=== PATIENT | female | born 1975 | race Caucasian/White ===

== ENCOUNTER 2017-02-19 02:20 | Emergency (ER) | payer MEDICAID ==
[~2017-02-19] VITALS: Ht 157.5 cm; Wt 59.0 kg
[~2017-02-19 02:20] MED LIST: HYDR10SO PO; KETO10 PO; LISI2.5T55 PO; PARO20 PO; ROBA500T PO; TAB-TAB PO
[2017-02-19 02:22] VITALS: BP 136/85; PULSE 92; RESP 16; TEMP 97.7; O2SAT 96
--- NOTE | 2017-02-19 02:36 | PD ---
HPI Chief Complaint: Skin Problem Time Seen by Provider: 02:35 Travel History International Travel<30 days: No Contact w/Intl Traveler<30days: No Traveled to known affect area: No History of Present Illness HPI 42-year-old female who is right handed, presents to emergency department for evaluation of a abscess on the lateral aspect of her right second digit. Patient states that she cut it with a piece of thread last week. Over the course of the week it became reddened and now is swollen and fluctuant. She is concerned because she states she has diabetes. She has had no fever or chills. No limitations range of motion of the digit. States that when it is palpated it is very painful, 10 out of 10 pain. States that it throbs at times. No other symptoms to report. She is not up-to-date on her tetanus. PFSH Past Medical History Arthritis: Yes (RA) Diabetes: Yes Patient Takes Glucophage: No Tetanus Vaccination: > 5 Years Influenza Vaccination: No ?: Not Past Surgical History Joint Replacement: Yes (TOTAL RT HIP) Social History Alcohol Use: Yes (OCC) Tobacco Use: Yes Substance Use: No Allergies-Medications (Allergen,Severity, Reaction): Coded Allergies: penicillin G (Unverified Allergy, Unknown, 02/19/17) Reported Meds & Prescriptions Reported Meds & Active Scripts Active Ibuprofen 600 Mg Tab 600 Mg PO Q8HR PRN Keflex (Cephalexin) 500 Mg Cap 500 Mg PO Q6H 5 Days Bactrim DS (Sulfamethoxazole-Trimethoprim) 800-160 Mg Tab 1 Tab PO BID Toradol (Ketorolac Tromethamine) 10 Mg Tab 10 Mg PO TID PRN Reported Multivitamin (Multivitamins) 1 Tab Tab 1 Tab PO DAILY Paxil 20 Mg Tab (Paroxetine Hcl) 20 Mg Tab 20 Mg PO DAILY Lisinopril 2.5 mg (Lisinopril) Unknown Strength Tab Unknown Dose PO Hydrocodone/Acetaminophen (Miscellaneous Medication) 10 Mg/325 Mg Tab 1 Tab PO DIRECTED PRN Robaxin (Methocarbamol) Unknown Strength Tab Unknown Dose PO Q8 Review of Systems Except as stated in HPI: all other systems reviewed are Neg Physical Exam Narrative GENERAL: Well-nourished, well-developed female patient no acute distress SKIN: Focused skin assessment warm/dry. 1 cm in diameter area of fluctuance on the lateral aspect of the right second digit over the the medial phalanx. Patient has full flexion extension of the digit. Area is tender to palpate. HEAD: Normocephalic. EYES: No scleral icterus. No injection or drainage. NECK: Supple, trachea midline. No JVD or lymphadenopathy. CARDIOVASCULAR: Regular rate and rhythm without murmurs, gallops, or rubs. RESPIRATORY: Breath sounds equal bilaterally. No accessory muscle use. MUSCULOSKELETAL: No cyanosis, or edema. BACK: Nontender without obvious deformity. No CVA tenderness. Data Data Last Documented VS Vital Signs Date Time Temp Pulse Resp B/P (MAP) Pulse Ox O2 Delivery O2 Flow Rate FiO2 02/19/17 02:50 02/19/17 02:22 97.7 92 16 96 Room Air Orders Orders Tetanus/Diphtheria Tox Adult (Tetanus/Di (02/19/17 02:45) Sulfamet-Trimeth Ds 800-160 Mg (Bactrim (02/19/17 02:45) Cephalexin (Keflex) (02/19/17 02:45) Wound Culture And Gram Stain (02/19/17 02:35) Ibuprofen (Motrin) (02/19/17 02:45) MDM Medical Decision Making Medical Screen Exam Complete: Yes Emergency Medical Condition: Yes Medical Record Reviewed: Yes Differential Diagnosis Abscess versus cellulitis versus erysipelas versus insect bite Narrative Course 42-year-old female presents for his apartment for evaluation. Patient has an abscess on the right second digit. I&D is complete, cultures obtained. Patient is treated for pain and given first dose of antibiotic. She is updated on her tetanus. She is counseled on care and agrees to return immediately with any acute worsening of symptoms. Procedures Procedure Narrative INCISION AND DRAINAGE OF ABSCESS: The area was prepped and was sterilely draped. A palatal chloride was used to anesthetize the area. The area was properly anesthetized. A number 11 scalpel was used to make a 1-cm incision across the area of the abscess. Cultures were obtained. The abscess was drained an irrigated with normal saline. Sterile dressing was applied. Patient tolerated this well. Diagnosis Primary Impression: Abscess of finger of right hand Referrals: Primary Care Physician Patient Instructions: Abscess Incision and Drainage (DC), General Instructions Additional Instructions: Keep the area clean and dry Follow-up with her primary care provider Elevate to reduce pain and swelling Return immediately to the emergency department with any acute worsening of symptoms. Med/Other Pt SpecificInfo: Prescription(s) given Scripts Ibuprofen (Ibuprofen) 600 Mg Tab 600 MG PO Q8HR Y for PAIN, #30 TAB 0 Refills Prov: Jocelyne Fleming 02/19/17 Cephalexin (Keflex) 500 Mg Cap 500 MG PO Q6H for Infection for 5 Days, #20 CAP 0 Refills Prov: Jocelyne Fleming 02/19/17 Sulfamethoxazole-Trimethoprim (Bactrim DS) 800-160 Mg Tab 1 TAB PO BID for Infection, #20 TAB 0 Refills Prov: Jocelyne Fleming 02/19/17 Disposition: 01 DISCHARGE HOME Condition: Stable Jocelyne Fleming Feb 19, 2017 02:36
[2017-02-19] MEDS ORDERED: IBUPROFEN 600 MG TAB PO ONE (02:45)
[2017-02-19] MEDS ORDERED: TETANUS/DIPHTHERIA TOXOID ADULT 0.5 ML VIAL IM ONE (02:45)
[2017-02-19] MEDS ORDERED: SULFAMETHOXAZOLE-TRIMETHOPRIM DS 800-160 MG TAB PO ONE (02:45)
[2017-02-19] MEDS ORDERED: CEPHALEXIN MONOHYDRATE 500 MG CAP PO ONE (02:45)
[2017-02-19] MEDS ORDERED: BACT800T5 PO (02:51)
[2017-02-19] MEDS ORDERED: CEPH-460 PO (02:51)
[2017-02-19] MEDS ORDERED: IBUP-232 PO (02:51)
== END 2017-02-19 03:00 | disposition home or self-care (01) ==
LOC: NEPD 02:20
DX: L02.511 Cutaneous abscess of right hand (principal); B95.61 Methicillin susceptible Staphylococcus aureus infection as the cause of diseases classified elsewhere; B95.1 Streptococcus, group B, as the cause of diseases classified elsewhere; E11.9 Type 2 diabetes mellitus without complications; Z72.0 Tobacco use; Z88.0 Allergy status to penicillin; Z23 Encounter for immunization
CPT/HCPCS: 26010; 86403; 87070; 87186; 90471; 90714

== ENCOUNTER 2017-02-24 23:03 | Inpatient (IN) | payer MEDICAID ==
[~2017-02-24] VITALS: Ht 162.6 cm; Wt 54.2 kg
[~2017-02-24 23:03] MED LIST changes: +BACT800T5 PO; +CEPH-460 PO; +IBUP-232 PO
[2017-02-24 23:05] VITALS: BP 112/59; PULSE 73; RESP 35; RESP 40; TEMP 98; O2SAT 98
[2017-02-24] MEDS ORDERED: SODIUM CHLOR 0.9% 1000 ML INJ 1,000 ML IV ONE ×3 (23:08→23:30)
[2017-02-24] MEDS ORDERED: SODIUM CHLOR 0.9% 250 ML INJ 250 ML IV ONE (23:15)
[2017-02-24] MEDS ORDERED: MORPHINE SULFATE 4 MG/ML INJ IV PUSH ONE (23:15)
[2017-02-24] MEDS ORDERED: SODIUM CHLORIDE 0.9% FLUSH 10 ML FLUSH IVF PRN ×2 (23:15)
[2017-02-24] MEDS ORDERED: ONDANSETRON HCL 4 MG/2 ML VIAL IV PUSH ONE (23:15)
[2017-02-24] MEDS ORDERED: DEXT 5%-NACL 0.9% 1000 ML INJ 1,000 ML IV SCH (23:18)
[2017-02-24 23:19] LABS: BLOOD GAS BASE EXCESS -29.6 mmol/L (-2-2); BLOOD GAS CARBOXYHEMOGLOBIN 0.9 % (0-4); BLOOD GAS HCO3 1 mmol/L (22-26); BLOOD GAS METHEMOGLOBIN 0.9 % (0-2); BLOOD GAS O2 HGB SATURATION 96 % (90-100); BLOOD GAS OXYGEN CONTENT 21.2 Vol % (12.0-20.0); BLOOD GAS PCO2 8 mmHg (38-42); BLOOD GAS PO2 149 mmHG (61-120); BLOOD GAS TOTAL HGB 15.6 G/DL (12.0-16.0); TEMP CORR TO 98.6
[2017-02-24 23:20] LABS: CRITICAL VALUE YES; DRAW SITE RT RADIAL; LITER FLOW 3 L/M; NUMBER OF ARTERIAL PUNCTURES 1; OXYGEN DEVICE NASAL CANNULA; STAT YES; ULNAR PULSE PRESENT
[2017-02-24 23:28] VITALS: BP 113/63; PULSE 68; RESP 20; O2SAT 99
[2017-02-24] MEDS ORDERED: CEFEPIME INJ 2,000 MG in SODIUM CHLORIDE 0.9% INJ 100 ML IV ONE (23:30)
[2017-02-24] MEDS ORDERED: VANCOMYCIN INJ 1,000 MG in SODIUM CHLOR 0.9% 250 ML INJ 250 ML IV ONE (23:30)
[2017-02-24] MEDS ORDERED: INSULIN REGULAR (IV INFUSION) 100 UNITS in SODIUM CHLORIDE 0.9% INJ 99 ML IV SCH (23:30)
[2017-02-24] MEDS ORDERED: POTASSIUM CHLOR 20 MEQ PREMIX 100 ML IV PRN ×6 (23:30)
[2017-02-24] MEDS ORDERED: INSULIN HUMAN REGULAR 1,000 UNITS/10 ML VIAL IV PUSH ONE (23:30)
[2017-02-24] MEDS ORDERED: SODIUM BICARBONATE 8.4% INJ 50 MEQ/50 ML SYR IV PUSH ONE (23:30)
[2017-02-24] MEDS ORDERED: SODIUM BICARBONATE 8.4% SOLN 50 MEQ/50 ML VIAL IV PRN ×2 (23:30)
[2017-02-24] MEDS ORDERED: POTASSIUM CHLOR 40 MEQ PREMIX 100 ML IV PRN ×2 (23:30)
[2017-02-24] MEDS ORDERED: SODIUM PHOSPHATE INJ 15 MMOL in SODIUM CHLORIDE 0.9% INJ 100 ML IV PRN (23:30)
--- NOTE | 2017-02-24 23:41 | RADRPT ---
EXAM DATE/TIME: 02/24/2017 23:23 [facility] COMPARISON: No previous studies available for comparison. INDICATIONS : Altered mental status. RADIATION DOSE: 26.11 CTDIvol (mGy) MEDICAL HISTORY : Rheumatoid arthritis. Diabetes mellitus type 2. SURGICAL HISTORY : None. ENCOUNTER: Initial ACUITY: 1 day PAIN SCALE: Non-responsive LOCATION: cranial TECHNIQUE: Multiple contiguous axial images were obtained of the head. Using automated exposure control and adj ustment of the mA and/or kV according to patient size, radiation dose was kept as low as reasonably a chievable to obtain optimal diagnostic quality images. DICOM format image data is available electro nically for review and comparison. FINDINGS: CEREBRUM: The ventricles are normal for age. No evidence of midline shift, mass lesion, hemorrhage or acute in farction. No extra-axial fluid collections are seen. POSTERIOR FOSSA: The cerebellum and brainstem are intact. The 4th ventricle is midline. The cerebellopontine angle i s unremarkable. EXTRACRANIAL: The visualized portion of the orbits is intact. SKULL: The calvaria is intact. No evidence of skull fracture. CONCLUSION: Negative noncontrast CT brain. Jomar Romero MD on February 24, 2017 at 23:38 Board Certified Radiologist. This report was verified electronically.
[2017-02-24] MEDS ORDERED: IOHEXOL 350 MG/ML 10 ML VIAL (for RAD DIAG) IVCONTRAST ONE (23:42)
--- NOTE | 2017-02-24 23:42 | PD ---
HPI Chief Complaint: Respiratory Distress Time Seen by Provider: 23:08 Travel History International Travel<30 days: No Contact w/Intl Traveler<30days: No Traveled to known affect area: No History of Present Illness HPI 42-year-old female presents to the emergency department by EMS transport from home for evaluation of severe shortness of breath and mid scapular and low back pain. Patient has been ill for 2 days. Patient has history of hypertension and per wrap yarn sorter report opiate abuse/IVDA of Dilaudid and heroin. Patient is also diabetic and has not been taking her medications; paramedics report blood sugar was high. According to paramedics prior to arrival to the emergency department patient was found to be in marked distress complaining of worsening shortness of breath administered IV fluids and EKG showed no acute injury pattern change. Patient into much distress to provide any other information other than continues to yell that "[she] needs help because [she is] dying". PFSH Past Medical History Narrative Medical Diabetes polysubstance abuse rheumatoid arthritis; medical record nursing note reviewed Arthritis: Yes (RA) Diabetes: Yes ?: Unknown Past Surgical History Joint Replacement: Yes (TOTAL RT HIP) Social History Alcohol Use: Yes (OCC) Tobacco Use: Yes Substance Use: No Allergies-Medications (Allergen,Severity, Reaction): Coded Allergies: penicillin G (Unverified Allergy, Unknown, 02/24/17) Reported Meds & Prescriptions Reported Meds & Active Scripts Active Reported Novolog Mix 70-30 Inj (Insulin Aspart Prota 70%/Aspart 30%) 1,000 Unit/10 Ml Vial Unknown Dose SQ Review of Systems Except as stated in HPI: all other systems reviewed are Neg Cardiovascular: Positive: Chest Pain or Discomfort Respiratory: Positive: Shortness of Breath Musculoskeletal: Positive: Pain (upper or mid back pain and lower back pain) Physical Exam Narrative GENERAL: Thin disheveled ill appearing female in acute distress acute respiratory distress SKIN: Warm and dry. HEAD: Normocephalic. EYES: No scleral icterus. No injection or drainage. NECK: Supple, trachea midline. No JVD or lymphadenopathy. CARDIOVASCULAR: Increased Regular rate and rhythm without murmurs, gallops, or rubs. RESPIRATORY: Breath sounds equal bilaterally. No accessory muscle use. GASTROINTESTINAL: Abdomen soft, non-tender, nondistended. MUSCULOSKELETAL: No cyanosis, or edema. BACK: Nontender without obvious deformity. No CVA tenderness. Data Data Last Documented VS Vital Signs Date Time Temp Pulse Resp B/P (MAP) Pulse Ox O2 Delivery O2 Flow Rate FiO2 02/24/17 23:28 68 20 113/63 (80) 99 Nasal Cannula 3.00 02/24/17 23:05 98.0 Orders Orders Electrocardiogram (02/24/17 23:08) Basic Metabolic Panel (Bmp) (02/24/17 23:08) Ckmb (Isoenzyme) Profile (02/24/17 23:08) Complete Blood Count With Diff (02/24/17 23:08) Magnesium (Mg) (02/24/17 23:08) Prothrombin Time / Inr (Pt) (02/24/17:08) Act Partial Throm Time (Ptt) (02/24/17 23:08) Troponin I (02/24/17 23:08) Chest, Single Ap (02/24/17 23:08) Ecg Monitoring (02/24/17 23:08) Bilateral Bp Monitoring (02/24/17 23:08) Iv Access Insert/Monitor (02/24/17 23:08) Oximetry (02/24/17 23:08) Oxygen Administration (02/24/17 23:08) Sodium Chloride 0.9% Flush (Ns Flush) (02/24/17 23:15) Cta Thor Abd Aorta W Iv C W3d (02/24/17 23:08) I-Stat Profile (02/24/17 23:08) I-Stat Creatinine (02/24/17 23:08) Calcium (02/24/17 23:08) B-Type Natriuretic Peptide (02/24/17 23:08) Sodium Chlor 0.9% 1000 Ml Inj (Ns 1000 M (02/24/17 23:08) Sodium Chloride 0.9% Flush (Ns Flush) (02/24/17 23:15) Arterial Blood Gas (Abg) (02/24/17 ) Ondansetron Inj (Zofran Inj) (02/24/17 23:15) Morphine Inj (Morphine Inj) (02/24/17 23:15) Type And Screen (02/24/17 23:11) Red Blood Cells (Rbc) (02/24/17 23:11) Blood Product Administration (02/24/17 23:11) Sodium Chlor 0.9% 250 Ml Inj (Ns 250 Ml (02/24/17 23:15) Sodium Chlor 0.9% 1000 Ml Inj (Ns 1000 M (02/24/17 23:15) Sodium Chlor 0.9% 1000 Ml Inj (Ns 1000 M (02/24/17 23:30) Learning And Development Intern / Telemetry STEPHEN.Q8H (02/24/17 23:18) ^ Insert Iv (02/24/17 23:18) Diet Npo (02/25/17 Breakfast) Sodium Chlor 0.9% 1000 Ml Inj (Ns 1000 M (02/24/17 23:18) Dext 5%-Nacl 0.9% 1000 Ml Inj (D5w-Ns 10 (02/24/17 23:18) Insulin Human Regular Inj (Novolin R Inj (02/24/17 23:30) Insulin Regular (Iv Infusion) (Novolin R (02/24/17 23:30) Potassium Chlor 40 Meq Premix (Kcl 40 Me (02/24/17 23:30) Potassium Chlor 40 Meq Premix (Kcl 40 Me (02/24/17 23:30) Potassium Chlor 20 Meq Premix (Kcl 20 Me (02/24/17 23:30) Potassium Chlor 20 Meq Premix (Kcl 20 Me (02/24/17 23:30) Potassium Chlor 20 Meq Premix (Kcl 20 Me (02/24/17 23:30) Potassium Chlor 20 Meq Premix (Kcl 20 Me (02/24/17 23:30) Potassium Chlor 20 Meq Premix (Kcl 20 Me (02/24/17 23:30) Potassium Chlor 20 Meq Premix (Kcl 20 Me (02/24/17 23:30) Sodium Bicarbonate 8.4% Inj (Sodium Bica (02/24/17 23:30) Sodium Bicarbonate 8.4% Inj (Sodium Bica (02/24/17 23:30) Sodium Phosphate Inj (Sodium Phosphate I (02/24/17 23:30) Hemoglobin (Hgb) A1c (02/24/17 23:18) Urinalysis - C+S If Indicated (02/24/17 23:18) Basic Metabolic Panel (Bmp) (02/25/17 04:18) Basic Metabolic Panel (Bmp) (02/25/17 10:18) Magnesium (Mg) (02/25/17 04:18) Magnesium (Mg) (02/25/17 10:18) Phosphorus (Po4) (02/25/17 04:18) Phosphorus (Po4) (02/25/17 10:18) Beta Hydroxybutyrate (Acetone) (02/25/17 10:18) Sodium Bicarbonate 8.4% Inj (Sodium Bica (02/24/17 23:30) Ct Brain W/O Iv Contrast(Rout) (02/24/17 ) Vancomycin Inj (Vancomycin Inj) (02/24/17 23:30) Cefepime Inj (Maxipime Inj) (02/24/17 23:30) Blood Culture (02/24/17 23:24) Lactic Acid Sepsis Protocol (02/24/17 23:24) Ammonia (02/24/17 23:24) Iohexol 350 Inj (Omnipaque 350 Inj) (02/24/17 23:42) Admit Order (Ed Use Only) (02/24/17 ) ^ Saline Lock (02/24/17 23:58) Resp Oxygen Gordon C Titrat 1-4 L (02/24/17 ) Notify Dr: Other (02/24/17 23:58) Sodium Chloride 0.9% Flush (Ns Flush) (02/25/17 09:00) Sodium Chloride 0.9% Flush (Ns Flush) (02/25/17 00:00) CKMB (02/24/17 23:15) CKMB% (02/24/17 23:15) Labs Laboratory Tests Test 02/24/17 23:00 02/24/17 23:15 02/24/17 23:30 Blood Gas Puncture Site RT RADIAL Blood Gas Patient Temperature 98.6 Blood Gas HCO3 1 mmol/L Blood Gas Base Excess -29.6 mmol/L Blood Gas Oxygen Saturation 96 % Arterial Blood pH 6.86 Arterial Blood Partial Pressure CO2 8 mmHg Arterial Blood Partial Pressure O2 149 mmHG Arterial Blood Oxygen Content 21.2 Vol % Arterial Blood Carboxyhemoglobin 0.9 % Arterial Blood Methemoglobin 0.9 % Blood Gas Hemoglobin 15.6 G/DL Oxygen Delivery Device NASAL CANNULA Blood Gas Liter Flow 3 L/M White Blood Count 29.6 TH/MM3 Red Blood Count 5.32 MIL/MM3 Hemoglobin 15.4 GM/DL Bedside Hemoglobin 16.0 G/DL Hematocrit 47.1 % Bedside Hematocrit 47.0 % Mean Corpuscular Volume 88.6 FL Mean Corpuscular Hemoglobin 28.9 PG Mean Corpuscular Hemoglobin Concent 32.6 % Red Cell Distribution Width 13.0 % Platelet Count 602 TH/MM3 Mean Platelet Volume 7.6 FL Neutrophils (%) (Auto) 80.6 % Lymphocytes (%) (Auto) 8.9 % Monocytes (%) (Auto) 9.9 % Eosinophils (%) (Auto) 0.1 % Basophils (%) (Auto) 0.5 % Neutrophils # (Auto) 23.9 TH/MM3 Lymphocytes # (Auto) 2.6 TH/MM3 Monocytes # (Auto) 2.9 TH/MM3 Eosinophils # (Auto) 0.0 TH/MM3 Basophils # (Auto) 0.1 TH/MM3 CBC Comment AUTO DIFF Differential Total Cells Counted 100 Neutrophils % (Manual) 81 % Lymphocytes % 9 % Monocytes % 9 % Basophils % 1 % Neutrophils # (Manual) 24.0 TH/MM3 Differential Comment FINAL DIFF MANUAL Platelet Estimate HIGH Platelet Morphology Comment NORMAL Red Cell Morphology Comment NORMAL Prothrombin Time 11.6 SEC Prothromb Time International Ratio 1.0 RATIO Activated Partial Thromboplast Time 44.7 SEC Bedside Sodium 112 MMOL/L Blood Urea Nitrogen 44 MG/DL Creatinine 1.56 MG/DL Random Glucose 760 MG/DL Calcium Level 9.6 MG/DL Magnesium Level 2.7 MG/DL Sodium Level 112 MEQ/L Potassium Level 5.1 MEQ/L Chloride Level 79 MEQ/L Carbon Dioxide Level LESS THAN 5.0 MEQ/L Bedside Potassium 5.3 MMOL/L Bedside Chloride 90 MMOL/L Anion Gap 28 MEQ/L Bedside Blood Urea Nitrogen 41 MG/DL Bedside Creatinine 0.9 MG/DL Estimat Glomerular Filtration Rate 37 ML/MIN Bedside Glucose GREATER THAN 700 MG/DL Total Bilirubin 0.4 MG/DL Direct Bilirubin 0.1 MG/DL Indirect Bilirubin 0.3 MG/DL Aspartate Amino Transf (AST/SGOT) 19 U/L Alanine Aminotransferase (ALT/SGPT) 24 U/L Alkaline Phosphatase 119 U/L Total Creatine Kinase 395 U/L Creatine Kinase MB 21.5 NG/ML Creatine Kinase MB % 5.4 % Troponin I 0.02 NG/ML B-Type Natriuretic Peptide 156 PG/ML Total Protein 6.8 GM/DL Albumin 3.2 GM/DL Lactic Acid Level 3.3 mmol/L Ammonia 152 MCMOL/L MDM Medical Decision Making Medical Screen Exam Complete: Yes Emergency Medical Condition: Yes Medical Record Reviewed: Yes Interpretation(s) ABG on 3 L/m nasal cannula pH 6.86 PCO2 8.3 PO2 149 bicarbonate 1.4 base excess -30 hemoglobin 15.6 sat 96% CK 395; CK-MB 5.4% EKG sinus rhythm rate [address] elevation or injury pattern identified marked artifact is present Differential Diagnosis Altered mental status, acute coronary syndrome, MD, aortic dissection, PE, sepsis, septic emboli, epidural abscess, DKA Narrative Course Patient placed on services rep IV access obtained from EMS additional IV access obtained to the emergency department patient given 1 L normal saline IV type and screen ordered with 2 units of packed cells on hold i-STAT obtained and patient sent emergently for CT brain noncontrast and CT A of the thoracic and abdominal aorta patient also administered Zofran 4 mg IV along with morphine sulfate 4 mg IV patient's blood gas obtained which shows marked metabolic acidosis with a pH of 6.86 and a bicarbonate of 1.4, 2 Amps of sodium bicarbonate ordered iv now and random glucose was greater than 700 DKA protocol initiated Call placed to underwear hemmer case discussed with Dr. Hancock and accepted for ICU admission Dr. Hancock at patient's bedside for admission Critical Care Narrative Aggregate critical care time was 35 minutes. Time to perform other separately billable procedures was not included in the critical care time. My time did not include minutes spent treating any other patients simultaneously or on activities that did not directly contribute to the patient's treatment. The services I provided to this patient were to treat and/or prevent clinically significant deterioration that could result in: Metabolic acidosis, arrhythmia, respiratory arrest, septic shock, I provided critical care services requiring my management, as noted below: Chart data review, documentation time, medication orders and management, vital sign assessments/reviewing monitor data, ordering and reviewing lab tests, ordering and interpreting/reviewing x-rays and diagnostic studies, care of the patient and discussion of the patient with the admitting physicians. Sepsis Criteria SIRS Criteria (2 or more): WBC > 13501, < 4000 or > 10% bands Physician Communication Physician Communication discussed with and admitted by Dr Hancock Diagnosis Primary Impression: DKA (diabetic ketoacidoses) Additional Impression: Substance abuse Admitting Information Admitting Physician Requests: Admit Yeni Morris MD Feb 24, 2017 23:42
[2017-02-24 23:43] LABS: AUTOMATED NEUTROPHIL # 23.9 TH/MM3 (1.8-7.7); BASOPHIL # 0.1 TH/MM3 (0-0.2); BASOPHIL % 0.5 % (0.0-2.0); EOSINOPHIL % 0.1 % (0.0-4.0); HEMATOCRIT 47.1 % (35.0-46.0); LYMPH % 8.9 % (9.0-44.0); LYMPHOCYTE # 2.6 TH/MM3 (1.0-4.8); MEAN CELL VOLUME 88.6 FL (80.0-100.0); MEAN CORPUSCULAR HEMOGLOBIN 28.9 PG (27.0-34.0); MEAN CORPUSCULAR HGB CONC 32.6 % (32.0-36.0); MONO % 9.9 % (0.0-8.0); NEUT % 80.6 % (16.0-70.0); PLATELET COUNT 602 TH/MM3 (150-450); RED BLOOD COUNT 5.32 MIL/MM3 (4.00-5.30); WHITE BLOOD COUNT 29.6 TH/MM3 (4.0-11.0)
[2017-02-24 23:44] LABS: HEMO FLAGS AUTO DIFF
[2017-02-24 23:47] LABS: I-STAT POTASSIUM 5.3 MMOL/L (3.5-4.9)
[2017-02-24 23:50] LABS: I-STAT SODIUM 112 MMOL/L (138-146)
[2017-02-24 23:59] LABS: APTT (PATIENT) 44.7 SEC (24.3-30.1); PROTHROMBIN TIME - PATIENT 11.6 SEC (9.8-11.6)
[2017-02-25] VITALS (10 sets, daily range): BP systolic 110–124; BP diastolic 59–80; PULSE 71–97; RESP 16–30; TEMP 98.1; O2SAT 99–100
[2017-02-25] MEDS ORDERED: MAGNESIUM OXIDE 400 MG TAB PO PRN
[2017-02-25] MEDS ORDERED: POTASSIUM PHOSPHATE MONOBASIC 500 MG TAB PO/TUBE PRN
[2017-02-25] MEDS ORDERED: POTASSIUM CHLOR 40 MEQ PREMIX 100 ML IV PRN ×2
[2017-02-25] MEDS ORDERED: RESP: ALBUTEROL 2.5 MG/IPRATROPIUM 0.5 MG NEB (PRN) INH
[2017-02-25] MEDS ORDERED: POTASSIUM PHOSPHATE MONOBASIC 500 MG TAB PO PRN
[2017-02-25] MEDS ORDERED: ONDANSETRON HCL 4 MG/2 ML VIAL IV PUSH PRN
[2017-02-25] MEDS ORDERED: MAGNESIUM SULFATE INJ 4 GM in SODIUM CHLORIDE 0.9% INJ 92 ML IV PRN ×2
[2017-02-25] MEDS ORDERED: ENOXAPARIN SODIUM 40 MG/0.4 ML SYRINGE SQ SCH
[2017-02-25] MEDS ORDERED: POTASSIUM PHOSPHATE INJ 30 MMOL in SODIUM CHLOR 0.9% 250 ML INJ 250 ML IV PRN ×2
[2017-02-25] MEDS ORDERED: MAGNESIUM SULFATE INJ 2 GM in SODIUM CHLORIDE 0.9% INJ 96 ML IV PRN ×2
[2017-02-25] MEDS ORDERED: SODIUM CHLORIDE 0.9% FLUSH 10 ML FLUSH IVF PRN
[2017-02-25] MEDS ORDERED: CHLORHEXIDINE GLUCONATE 2 % 1 PACK (2 CLOTHS) TOP PRN
[2017-02-25] MEDS ORDERED: MISCELLANEOUS NURSING INFORMATION XX SCH
[2017-02-25] MEDS ORDERED: SODIUM PHOSPHATE INJ 30 MMOL in SODIUM CHLOR 0.9% 250 ML INJ 240 ML IV PRN ×2
[2017-02-25] MEDS ORDERED: POTASSIUM CHLOR 20 MEQ PREMIX 100 ML IV PRN ×2
--- NOTE | 2017-02-25 00:04 | RADRPT ---
EXAM DATE/TIME: 02/24/2017 23:42 [facility] COMPARISON: No previous studies available for comparison. INDICATIONS : Chest pain x 4 days. MEDICAL HISTORY : Diabetes mellitus type II. SURGICAL HISTORY : None. ENCOUNTER: Initial ACUITY: 4 - 6 days PAIN SCORE: Non-responsive. LOCATION: Bilateral chest FINDINGS: Frontal view of the chest demonstrates the lungs to be symmetrically aerated. Some minimal patchy in filtrates present in the left medial lower lung. No focal areas of consolidation. The heart is norm al in size. The costophrenic angles are well delineated. CONCLUSION: Minimal patchy infiltrates in the left lower lung. Jomar Romero MD on February 25, 2017 at 0:01 Board Certified Radiologist. This report was verified electronically.
[2017-02-25] MEDS ORDERED: NOVOLOGMXP SQ (00:12)
--- NOTE | 2017-02-25 00:12 | RADRPT ---
EXAM DATE/TIME: 02/24/2017 23:31 [facility] COMPARISON: No previous studies available for comparison. INDICATIONS : Short of breath, chest pain. IV CONTRAST: 100 cc Omnipaque 350 (iohexol) IV RADIATION DOSE: 4.52 CTDIvol (mGy) MEDICAL HISTORY : Rheumatoid arthritis. Diabetes mellitus type 2. SURGICAL HISTORY : None. ENCOUNTER: Initial ACUITY: 1 day PAIN SCALE: 5/10 LOCATION: chest TECHNIQUE: Volumetric scanning was performed using a multi-row detector CT scanner. The data was post processed with a variety of visualization algorithms including full volume maximum intensity projection, multi -planar sliding thin slab reformation, curved planar reformation, and surface rendering techniques. Using automated exposure control and adjustment of the mA and/or kV according to patient size, radiat ion dose was kept as low as reasonably achievable to obtain optimal diagnostic quality images. DICOM format image data is available electronically for review and comparison. FINDINGS: LUNGS: Normal patchy non-consolidative infiltrates in the medial left lower lung paraspinal location. No ev idence of pleural effusion. MEDIASTINUM: No abnormally enlarged lymph nodes by CT criteria. No axillary or hilar abnormalities are identified. There is concentric wall thickening of the distal thoracic esophagus. ABDOMEN: Distention of the stomach with prominent amount of fluid within the lumen. The liver and spleen are free of focal defects. The gallbladder and pancreas demonstrate no abnormality. The adrenal glands ar e normal. The kidneys demonstrate no evidence of solid renal mass or hydronephrosis. No free fluid or abdominal masses are identified. No para-aortic adenopathy is seen. PELVIS: No evidence of free fluid or pelvic mass. No abnormally enlarged inguinal or retroperitoneal lymph no lucero are present. The bladder is distended. THORACIC AORTA: The thoracic aortic root is normal with normal branching of the great vessels. There is no evidence of aneurysm or dissection. ABDOMINAL AORTA: The aorta is normal in caliber without aneurysm or dissection. The renal arteries are patent bilater ally. The proximal celiac and superior mesenteric arteries are patent and normal in diameter. PELVIC VESSELS: The internal iliac and external iliac vessels are patent without aneurysm or stenosis. CONCLUSION: 1. Normal CTA of the thoracic and abdominal aorta. No evidence of aneurysm or dissection. 2. Concentric thickening of the thoracic esophageal wall. Fluid distended stomach. Distended urinary bladder. Jomar Romero MD on February 25, 2017 at 0:02 Board Certified Radiologist. This report was verified electronically.
[2017-02-25 00:21] LABS: ANION GAP 28 MEQ/L (5-15); BICARBONATE LESS THAN 5.0 MEQ/L (21.0-32.0); BLOOD UREA NITROGEN 44 MG/DL (7-18); CHLORIDE 79 MEQ/L (98-107); CREATINE KINASE 395 U/L (26-192); GLOMERULAR FILTRATION RATE 37 ML/MIN (>89); MAGNESIUM 2.7 MG/DL (1.5-2.5); POTASSIUM 5.1 MEQ/L (3.5-5.1)
[2017-02-25 00:24] LABS: SODIUM (NA) 112 MEQ/L (136-145)
[2017-02-25 00:26] LABS: BASOPHILS 1 % (0-2); PLATELET ESTIMATE SMEAR HIGH (NORMAL); PLATELET MORPHOLOGY NORMAL (NORMAL); POLYS (SEG NEUTROPHILS) 81 % (16-70); SCAN/DIFF FINAL DIFF MANUAL; WBC DIFF SAMPLE 100
[2017-02-25 00:40] LABS: CKMB 21.5 NG/ML (0.5-3.6)
[2017-02-25] MEDS: SODIUM CHLOR 0.9% 1000 ML INJ 1,000 ML IV SCH ×4 (00:58→11:18)
[2017-02-25 01:43] LABS: LACTIC ACID GHOST NOT REPORTABLE
[2017-02-25 01:44] LABS: BACTERIA, URINE OCC /hpf; BLOOD, URINE MOD (NEG); GLUCOSE,URINE 1000 mg/dL (NEG); KETONE, URINE 150 mg/dL (NEG); MUCUS URINE FEW /lpf (OCC); NITRITE,URINE NEG (NEG); SQUAMOUS EPITHELIAL CELL URINE 7 /hpf (0-5); URINE COLOR LIGHT-YELLOW (YELLW/STRAW)
[2017-02-25 01:46] LABS: COMMENT (UR) CATH-CULTURE IND; CULTURE IF INDICATED CATH CULTURE IND
[2017-02-25] MEDS ORDERED: Vancomycin Consult Pharmacy 1 EA OTHER SCH (02:00)
--- NOTE | 2017-02-25 02:07 | HHI.HP ---
[facility] Service Critical Care Medicine Primary Care Physician Cory Hunter MD Admission Diagnosis DKA Diagnosis: Chief Complaint: shortness of breath Travel History International Travel<30 Days: No Contact w/Intl Traveler <30 Da: No Traveled to Known Affected Are: No History of Present Illness This is a 42yF with history of IVDA, mostly heroin and dilaudid, and type 1 DM who presents with worsening shortness of breath x 2 days. She states she ran out of her 70/30 insulin over the last 3 days. She also endorses fever/chills. She is quite altered and unable to answer additional questions. she is quite tachypneic and states she is short of breath. denies chest pain. denies n/v/c/d or abdominal pain. She did endorse back pain to the ED physician. In the ER, she was found to have a serum glucose of 700 with an ab.86/8/149/-29.6/1. She is in severe DKA. She was given multiple amps of bicarb and started on insulin drip. Review of Systems ROS Limitations: Clinical Condition, Altered Mental Status Constitutional: COMPLAINS OF: Fatigue, Fever, Chills Respiratory: DENIES: Cough, Wheezing, Hemoptysis, Sputum production, Shortness of breath Cardiovascular: DENIES: Chest pain, Palpitations, Syncope Gastrointestinal: DENIES: Abdominal pain, Black stools, Bloody stools, Constipation, Diarrhea, Nausea, Vomiting Musculoskeletal: COMPLAINS OF: Back pain Neurologic: DENIES: Headache Past Family Social History Allergies: Coded Allergies: penicillin G (Unverified Allergy, Unknown, 02/24/17) Past Medical History Rheumatoid Arthritis Type 1 diabetes Past Surgical History right total hip arthroplasty. Reported Medications Novolog Mix 70-30 Inj (Insulin Aspart Prota 70%/Aspart 30%) 1,000 Unit/10 Ml Vial Unknown Dose SQ Active Ordered Medications See MAR Family History unknown and unobtainable secondary to the clinical condition of the patient. Social History + occasional etoh use, +tob use, + IVDA. Physical Exam Vital Signs Vital Signs Date Time Temp Pulse Resp B/P (MAP) Pulse Ox O2 Delivery O2 Flow Rate FiO2 02/25/17 01:27 02/25/17 01:05 71 20 117/68 (84) 99 Nasal Cannula 3.00 02/25/17 00:28 99 Nasal Cannula 3.00 02/25/17 00:05 78 30 110/59 (76) 100 Nasal Cannula 3.00 02/24/17 23:28 68 20 113/63 (80) 99 Nasal Cannula 3.00 02/24/17 23:05 98.0 73 35 112/59 (76) 98 02/24/17 23:05 99 Nasal Cannula 3.00 02/24/17 23:05 40 98 Nasal Cannula 3.00 Physical Exam GENERAL: Middle-aged female but appears much older than stated age, lying in bed , in severe distress, tachypneic HEENT: Normocephalic. Atraumatic. Pupils equal, round, reactive, conjugate. Mucous membranes are dry NECK: Trachea is midline. There is no JVD. CHEST: Very tachypneic, equal chest rise, clear to auscultation CARDIOVASCULAR: Tachycardic rate, regular rhythm. Sinus by telemetry ABDOMEN: Soft, nontender, nondistended. No guarding. MUSCULOSKELETAL: Pulses 2+. No peripheral edema. NEUROLOGICAL: RASS -1. CAM -. Somnolent but arousable. Follows commands Laboratory Laboratory Tests Test 02/24/17 23:00 02/24/17 23:15 02/24/17 23:30 02/25/17 01:10 Blood Gas Puncture Site RT RADIAL Blood Gas Patient Temperature 98.6 Blood Gas HCO3 1 Blood Gas Base Excess -29.6 Blood Gas Oxygen Saturation 96 Arterial Blood pH 6.86 Arterial Blood Partial Pressure CO2 8 Arterial Blood Partial Pressure O2 149 Arterial Blood Oxygen Content 21.2 Arterial Blood Carboxyhemoglobin 0.9 Arterial Blood Methemoglobin 0.9 Blood Gas Hemoglobin 15.6 Oxygen Delivery Device NASAL CANNULA Blood Gas Liter Flow 3 White Blood Count 29.6 Red Blood Count 5.32 Hemoglobin 15.4 Bedside Hemoglobin 16.0 Hematocrit 47.1 Bedside Hematocrit 47.0 Mean Corpuscular Volume 88.6 Mean Corpuscular Hemoglobin 28.9 Mean Corpuscular Hemoglobin Concent 32.6 Red Cell Distribution Width 13.0 Platelet Count 602 Mean Platelet Volume 7.6 Neutrophils (%) (Auto) 80.6 Lymphocytes (%) (Auto) 8.9 Monocytes (%) (Auto) 9.9 Eosinophils (%) (Auto) 0.1 Basophils (%) (Auto) 0.5 Neutrophils # (Auto) 23.9 Lymphocytes # (Auto) 2.6 Monocytes # (Auto) 2.9 Eosinophils # (Auto) 0.0 Basophils # (Auto) 0.1 CBC Comment AUTO DIFF Differential Total Cells Counted 100 Neutrophils % (Manual) 81 Lymphocytes % 9 Monocytes % 9 Basophils % 1 Neutrophils # (Manual) 24.0 Differential Comment FINAL DIFF MANUAL Platelet Estimate HIGH Platelet Morphology Comment NORMAL Red Cell Morphology Comment NORMAL Prothrombin Time 11.6 Prothromb Time International Ratio 1.0 Activated Partial Thromboplast Time 44.7 Bedside Sodium 112 Blood Urea Nitrogen 44 Creatinine 1.56 Random Glucose 760 Calcium Level 9.6 Magnesium Level 2.7 Sodium Level 112 Potassium Level 5.1 Chloride Level 79 Carbon Dioxide Level LESS THAN 5.0 Bedside Potassium 5.3 Bedside Chloride 90 Anion Gap 28 Bedside Blood Urea Nitrogen 41 Bedside Creatinine 0.9 Estimat Glomerular Filtration Rate 37 Bedside Glucose GREATER THAN 700 Total Creatine Kinase 395 Creatine Kinase MB 21.5 Creatine Kinase MB % 5.4 Troponin I 0.02 B-Type Natriuretic Peptide 156 Lactic Acid Level 3.3 Ammonia 152 Urine Color LIGHT-YELLOW Urine Turbidity HAZY Urine pH 5.0 Urine Specific [place] 1.016 Urine Protein 30 Urine Glucose (UA) 1000 Urine Ketones 150 Urine Occult Blood MOD Urine Nitrite NEG Urine Bilirubin NEG Urine Urobilinogen LESS THAN 2.0 Urine Leukocyte Esterase MOD Urine RBC 5 Urine WBC 13 Urine Squamous Epithelial Cells 7 Urine Bacteria OCC Urine Mucus FEW Microscopic Urinalysis Comment CATH-CULTURE IND Date/Time Source Procedure Growth Status 02/24/17 23:15 Blood Peripheral Aerobic Blood Culture Pending Received 02/24/17 23:15 Blood Peripheral Anaerobic Blood Culture Pending Received 02/25/17 01:10 Urine Catheterized Urine Urine Culture Pending Received Result Diagram: 02/24/17231402/24/172314 Imaging Last Impressions Chest X-Ray 02/24/172307 Signed Impressions: Service Date/Time: Friday, February 24, 2017 23:42 - CONCLUSION: Minimal patchy infiltrates in the left lower lung. Jomar Romero MD Aorta CTA 02/24/172307 Signed Impressions: Service Date/Time: Friday, February 24, 2017 23:31 - CONCLUSION: 1. Normal CTA of the thoracic and abdominal aorta. No evidence of aneurysm or dissection. 2. Concentric thickening of the thoracic esophageal wall. Fluid distended stomach. Distended urinary bladder. Jomar Romero MD Head CT 02/24/17 0000 Signed Impressions: Service Date/Time: Friday, February 24, 2017 23:23 - CONCLUSION: Negative noncontrast CT brain. MD Master Bustamante VTE Risk Assessment Master VTE Risk Assessment: Mod/High Risk (score >= 2) Caprini Risk Assessment Model Point Value = 1 Point Value = 2 Point Value = 3 Point Value = 5 Age 41-60 Minor surgery BMI > 25 kg/m2 Swollen legs Varicose veins or History of unexplained or recurrent spontaneous Oral contraceptives or hormone replacement Sepsis (< 1 month) Serious lung disease, including pneumonia (< 1 month) Abnormal pulmonary function Acute myocardial infarction Congestive heart failure (< 1 month) History of inflammatory bowel disease Medical patient at bed rest Age 61-74 Arthroscopic surgery Major open surgery (> 45 min) Laparoscopic surgery (> 45 min) Malignancy Confined to bed (> 72 hours) Immobilizing plaster cast Central venous access Age >= 75 History of VTE Family history of VTE Factor V Leiden Prothrombin [id number] Lupus anticoagulant Anticardiolipin antibodies Elevated serum homocysteine Heparin-induced thrombocytopenia Other congenital or acquired thrombophilia Stroke (< 1 month) Elective arthroplasty Hip, pelvis, or leg fracture Acute spinal cord injury (< 1 month) Prophylaxis Regimen Total Risk Factor Score Risk Level Prophylaxis Regimen 0-1 Low Early ambulation 2 Moderate Order ONE of the following: *Sequential Compression Device (SCD) *Heparin 5000 units SQ BID 3-4 Higher Order ONE of the following medications: *Heparin 5000 units SQ TID *Enoxaparin/Lovenox 40 mg SQ daily (WT < 150 kg, CrCl > 30 mL/min) *Enoxaparin/Lovenox 30 mg SQ daily (WT < 150 kg, CrCl > 10-29 mL/min) *Enoxaparin/Lovenox 30 mg SQ BID (WT < 150 kg, CrCl > 30 mL/min) AND/OR *Sequential Compression Device (SCD) 5 or more Highest Order ONE of the following medications: *Heparin 5000 units SQ TID (Preferred with Epidurals) *Enoxaparin/Lovenox 40 mg SQ daily (WT < 150 kg, CrCl > 30 mL/min) *Enoxaparin/Lovenox 30 mg SQ daily (WT < 150 kg, CrCl > 10-29 mL/min) *Enoxaparin/Lovenox 30 mg SQ BID (WT < 150 kg, CrCl > 30 mL/min) AND *Sequential Compression Device (SCD) Assessment and Plan Assessment and Plan Assessment: 42-year-old female with severe diabetic ketoacidosis and possible urinary tract infection. Admit the ICU. Insulin drip. Close monitoring. Her acid base status is nearly fatal at this point with a serum bicarbonate of 1 and a pH of 6.8. We will very closely monitor her, and if she continues to decline, this may be a fatal event. She remains very critically ill this time. Plan by systems: Neurologic: Metabolic encephalopathy - frequent neuro checks - avoid any sedating medication: if her respiratory drive is suppressed, she may have hemodynamic collapse. Respiratory: Acute severe respiratory distress - secondary to severe metabolic acidosis - she does not have enough drive to have an appropriate respiratory compensation - wean o2 by NC for spo2 > 90% - hob at 30 degrees - nebs Cardiovascular: Sinus tachycardia Hypovolemic shock - secondary to DKA - ivf resuscitation Renal: Acute kidney injury -- Strict I/Os - secondary to hypovolemic shock from DKA. - ivf resuscitation - trend BMP - watch uop closely. FEN/GI: Severe anion gap metabolic acidosis Hyperkalemia Total body potassium deficit Pseudohyponatremia Intravascular hypovolemia Acute protein calorie malnutrition - severe - NPO for now, will slowly advance diet - sodium bicarb as needed to keep serum pH > 7.0 - trend BMP, watch anion gap - replace K aggressively: as acidosis resolves, serum potassium will fall precipitously. Heme/ID: Possible sepsis Possible urinary tract infection Leukocytosis - send poole cultures - vancomycin/cefepime/flagyl - daily cbc Endocrine: Diabetic ketoacidosis - insulin drip - dka protocol - hourly blood glucoses Prophylaxis: GI Prophylaxis Pepcid DVT Prophylaxis -- SCDs Subcutaneous heparin Lines: Peripheral IVs Dispo: To ICU This patient remains critically ill with one or more organ systems which are or may become a threat to life. I have spent in excess of 65 minutes discontinuously in the care and management of this patient. This time is exclusive of procedures, and includes, but is not limited to, evaluation of the patient, review of the medical record, discussions with family, consultants, nursing staff, or respiratory therapy, and documentation in the medical record. Matt Hancock MD Feb 25, 2017 02:07
[2017-02-25 02:39] LABS: INDIRECT BILIRUBIN 0.3 MG/DL (0.0-0.8); TOTAL BILIRUBIN ADULT 0.4 MG/DL (0.2-1.0)
[2017-02-25] MEDS: metroNIDAZOLE 500 MG INJ 100 ML IV SCH ×3 (03:12→12:37)
[2017-02-25] MEDS ORDERED: CHLORHEXIDINE GLUCONATE 2 % 1 PACK (2 CLOTHS) TOP SCH (04:00)
[2017-02-25 04:03] LABS: HEMATOCRIT 50.1 % (35.0-46.0); MEAN CELL VOLUME 84.3 FL (80.0-100.0); MEAN CORPUSCULAR HEMOGLOBIN 28.9 PG (27.0-34.0); MEAN CORPUSCULAR HGB CONC 34.3 % (32.0-36.0); PLATELET COUNT 333 TH/MM3 (150-450); RED BLOOD COUNT 5.94 MIL/MM3 (4.00-5.30); RED CELL DISTRIBUTION WIDTH 12.8 % (11.6-17.2); REVIEW FLAG FINAL; WHITE BLOOD COUNT 23.1 TH/MM3 (4.0-11.0)
[2017-02-25 04:20] LABS: BLOOD GAS BASE EXCESS -24.9 mmol/L (-2-2); BLOOD GAS CARBOXYHEMOGLOBIN 1.7 % (0-4); BLOOD GAS HCO3 3 mmol/L (22-26); BLOOD GAS METHEMOGLOBIN 1.2 % (0-2); BLOOD GAS O2 HGB SATURATION 96 % (90-100); BLOOD GAS OXYGEN CONTENT 21.2 Vol % (12.0-20.0); BLOOD GAS PCO2 11 mmHg (38-42); BLOOD GAS PO2 146 mmHg (61-120); BLOOD GAS TOTAL HGB 15.6 G/DL (12.0-16.0); TEMP CORR TO 98.6
[2017-02-25 04:22] LABS: CRITICAL VALUE YES; DRAW SITE LT RADIAL; LITER FLOW 2 L/M; NUMBER OF ARTERIAL PUNCTURES 1; OXYGEN DEVICE NASAL CANNULA; STAT YES; ULNAR PULSE PRESENT
[2017-02-25 04:31] LABS: BICARBONATE 5.6 MEQ/L (21.0-32.0); MAGNESIUM 1.8 MG/DL (1.5-2.5); POTASSIUM 3.1 MEQ/L (3.5-5.1)
[2017-02-25] MEDS ORDERED: SODIUM BICARBONATE 8.4% INJ 50 MEQ/50 ML SYR IV PUSH ONE (04:45)
[2017-02-25] MEDS ORDERED: CEFEPIME INJ 2,000 MG in SODIUM CHLORIDE 0.9% INJ 100 ML IV SCH (08:00)
[2017-02-25] MEDS ORDERED: FAMOTIDINE 20 MG TAB PO SCH (09:00)
[2017-02-25] MEDS ORDERED: DOCUSATE SODIUM 50 MG/SENNA 8.6 MG TAB PO SCH (09:00)
[2017-02-25] MEDS ORDERED: SODIUM CHLORIDE 0.9% FLUSH 10 ML FLUSH IV FLUSH SCH (09:00)
[2017-02-25 12:28] LABS: ANION GAP 10 MEQ/L (5-15); BETA-HYDROXYBUTYRATE 1.73 MMOL/L (0.00-0.39); BICARBONATE 17.3 MEQ/L (21.0-32.0); BLOOD UREA NITROGEN 35 MG/DL (7-18); CHLORIDE 110 MEQ/L (98-107); GLOMERULAR FILTRATION RATE 70 ML/MIN (>89); MAGNESIUM 1.5 MG/DL (1.5-2.5); SODIUM (NA) 137 MEQ/L (136-145)
[2017-02-25 12:30] LABS: POTASSIUM 2.8 MEQ/L (3.5-5.1)
[2017-02-25] MEDS ORDERED: LACTATED RINGER'S 1000 ML INJ 1,000 ML IV SCH (12:30)
--- NOTE | 2017-02-25 12:39 | HHI.CCPN ---
Subjective Remarks/Hospital Course This is a 42yF with history of IVDA, mostly heroin and dilaudid, and type 1 DM who presents with worsening shortness of breath x 2 days. She states she ran out of her 70/30 insulin over the last 3 days. She also endorses fever/chills. She is quite altered and unable to answer additional questions. she is quite tachypneic and states she is short of breath. denies chest pain. denies n/v/c/d or abdominal pain. She did endorse back pain to the ED physician. In the ER, she was found to have a serum glucose of 700 with an ab.86/8/149/-29.6/1. She is in severe DKA. She was given multiple amps of bicarb and started on insulin drip. Subjective: 02/25 noted initial uncorrected Na 112 with corrected Na 118 upon admission, patient received multiple amps of sodium bicarbonate,, and was placed on D5 0.9 sodium chloride per DKA protocol at 200 cc/an hour. Post 4 hours, repeat sodium uncorrected 127, corrected 130. D5NS discontinued concern for rapid correction, and central pontine myelinolysis. IV fluids changed to lactated Ringer Objective Vital Signs Date Time Temp Pulse Resp B/P (MAP) Pulse Ox O2 Delivery O2 Flow Rate FiO2 02/25/17 11:00 85 02/25/17 09:00 16 124/80 (95) 100 02/25/17 08:00 98.1 02/25/17 01:05 Nasal Cannula 3.00 Intake and Output 02/25/17 02/25/17 02/26/17 08:00 16:00 00:00 Intake Total 3450 ml 900 ml Output Total 1050 ml Balance 2400 ml 900 ml Result Diagram: 02/25/17 0346 02/25/17 1105 Other Results Laboratory Tests Test 02/24/17 23:00 02/25/17 04:00 Blood Gas Puncture Site RT RADIAL LT RADIAL Blood Gas Patient Temperature 98.6 98.6 Blood Gas HCO3 1 mmol/L (22-26) 3 mmol/L (22-26) Blood Gas Base Excess -29.6 mmol/L (-2-2) -24.9 mmol/L (-2-2) Blood Gas Oxygen Saturation 96 % (90-100) 96 % (90-100) Arterial Blood pH 6.86 (7.380-7.420) 7.13 (7.380-7.420) Arterial Blood Partial Pressure CO2 8 mmHg (38-42) 11 mmHg (38-42) Arterial Blood Partial Pressure O2 149 mmHG (61-120) 146 mmHg (61-120) Arterial Blood Oxygen Content 21.2 Vol % (12.0-20.0) 21.2 Vol % (12.0-20.0) Arterial Blood Carboxyhemoglobin 0.9 % (0-4) 1.7 % (0-4) Arterial Blood Methemoglobin 0.9 % (0-2) 1.2 % (0-2) Blood Gas Hemoglobin 15.6 G/DL (12.0-16.0) 15.6 G/DL (12.0-16.0) Oxygen Delivery Device NASAL CANNULA NASAL CANNULA Blood Gas Liter Flow 3 L/M 2 L/M Imaging Last Impressions Chest X-Ray 02/24/172307 Signed Impressions: Service Date/Time: Friday, February 24, 2017 23:42 - CONCLUSION: Minimal patchy infiltrates in the left lower lung. Jomar Romero MD Aorta CTA 02/24/172307 Signed Impressions: Service Date/Time: Friday, February 24, 2017 23:31 - CONCLUSION: 1. Normal CTA of the thoracic and abdominal aorta. No evidence of aneurysm or dissection. 2. Concentric thickening of the thoracic esophageal wall. Fluid distended stomach. Distended urinary bladder. Jomar Romero MD Head CT 02/24/17 0000 Signed Impressions: Service Date/Time: Friday, February 24, 2017 23:23 - CONCLUSION: Negative noncontrast CT brain. Jomar Romero MD Objective Remarks GENERAL: Middle-aged female but appears much older than stated age, lying in bed , in mild distress HEENT: Normocephalic. Atraumatic. Pupils equal, round, reactive, conjugate. Mucous membranes are dry NECK: Trachea is midline. There is no JVD. CHEST: Very tachypneic, equal chest rise, clear to auscultation CARDIOVASCULAR: Tachycardic rate, regular rhythm. Sinus by telemetry ABDOMEN: Soft, nontender, nondistended. No guarding. MUSCULOSKELETAL: Pulses 2+. No peripheral edema. NEUROLOGICAL: RASS 0. Somnolent but arousable. Follows commands A/P Assessment and Plan Assessment: 42-year-old female with severe diabetic ketoacidosis and possible urinary tract infection. Admit the ICU. Insulin drip. Close monitoring. Her acid base status is nearly fatal at this point with a serum bicarbonate of 1 and a pH of 6.8. We will very closely monitor her, and if she continues to decline, this may be a fatal event. She remains very critically ill this time. Plan by systems: Neurologic: Metabolic encephalopathy - frequent neuro checks - avoid any sedating medication: if her respiratory drive is suppressed, she may have hemodynamic collapse. Respiratory: Acute severe respiratory distress - secondary to severe metabolic acidosis - she does not have enough drive to have an appropriate respiratory compensation - wean o2 by NC for spo2 > 90% - hob at 30 degrees - nebs Cardiovascular: Sinus tachycardia Hypovolemic shock - secondary to DKA - ivf resuscitation Renal: Acute kidney injury -- Strict I/Os - secondary to hypovolemic shock from DKA. - ivf resuscitation - trend BMP - watch uop closely. -Monitor serial sodium levels every 4 hours FEN/GI: Severe anion gap metabolic acidosis Hyperkalemia Total body potassium deficit Pseudohyponatremia Intravascular hypovolemia Acute protein calorie malnutrition - severe - NPO for now, will slowly advance diet - sodium bicarb as needed to keep serum pH > 7.0 - trend BMP, watch anion gap - replace K aggressively: as acidosis resolves, serum potassium will fall precipitously. Heme/ID: Possible sepsis Possible urinary tract infection Leukocytosis - send poole cultures - vancomycin/cefepime/flagyl - daily cbc Endocrine: Diabetic ketoacidosis - insulin drip - dka protocol - hourly blood glucoses Prophylaxis: GI Prophylaxis Pepcid DVT Prophylaxis -- SCDs Subcutaneous heparin Lines: Peripheral IVs Dispo: Will continue to monitor serial sodium levels. The patient remain critically ill. This patient remains critically ill with one or more organ systems which are or may become a threat to life. I have spent in excess of 30 minutes discontinuously in the care and management of this patient. This time is exclusive of procedures, and includes, but is not limited to, evaluation of the patient, review of the medical record, discussions with family, consultants, nursing staff, or respiratory therapy, and documentation in the medical record. Physician Tiffanie Love MD Feb 25, 2017 12:39
[2017-02-25] MEDS ORDERED: VANCOMYCIN 1,000 MG/NS 250 ML IV SCH ×2 (14:00)
--- NOTE | 2017-02-25 16:33 | EKG ---
Date Performed: 02/24/2017 Time Performed: 23:09:32 PTAGE: 42 years EKG: Sinus rhythm POSSIBLE LEFT ATRIAL ENLARGEMENT POOR TRACING WITH BASELINE ARTIFACT AND WANDERING. BORDERLINE ECG NO PREVIOUS TRACING DOCTOR: Moody Man Interpretating Date/Time 02/25/2017 16:32:56
[2017-02-26 11:56] LABS: HEMOGLOBIN A1a 1.7 %; HEMOGLOBIN Ao 71.7 %; HEMOGLOBIN F 3.5 %; HEMOGLOBIN LA1C 2.6 %; HEMOGLOBIN P3 5.2 %
[2017-02-26] MEDS ORDERED: PHARMACY ORDERED LAB ONE (13:45)
== END 2017-02-25 15:10 | disposition left against medical advice (07) | DRG 637 ==
LOC: NEPC 23:03 → NEDA 02-25 → HIME 02-25 01:40
PROVIDERS: ADMIT Internal Medicine Critical Care Medicine; ATTEND Internal Medicine Critical Care Medicine
DX: E10.10 Type 1 diabetes mellitus with ketoacidosis without coma (principal); G93.41 Metabolic encephalopathy; R57.1 Hypovolemic shock; E43 Unspecified severe protein-calorie malnutrition; N17.9 Acute kidney failure, unspecified; F17.210 Nicotine dependence, cigarettes, uncomplicated; M06.9 Rheumatoid arthritis, unspecified; Z79.4 Long term (current) use of insulin; Z96.641 Presence of right artificial hip joint; E87.5 Hyperkalemia; Z68.20 Body mass index [BMI] 20.0-20.9, adult; F11.10 Opioid abuse, uncomplicated
CPT/HCPCS: 36600; 70450; 71010; 71275; 74174; 80048; 80076; 80307; 81001; 82010; 82140; 82435; 82550; 82552; 82565; 82805; 82947; 82948; 83036; 83605; 83735; 83880; 84100; 84132; 84295; 84484; 84520; 85007; 85027; 85610; 85730; 86850; 86900; 86901; 86920; 87040; 87086; 87641; 93005; 96361; 96374; 96375; J0692; J1650; J1815; J1817; J2270; J2405; J3370; J3480; J7030; J7042; J7050; J7120; Q9967

== ENCOUNTER 2017-02-25 21:38 | Inpatient (IN) | payer MEDICAID ==
[~2017-02-25] VITALS: Ht 162 cm; Wt 58.0 kg
[~2017-02-25 21:38] MED LIST changes: +NOVOLOGMXP SQ
[2017-02-25 21:39] VITALS: BP 146/88; PULSE 88; RESP 16; TEMP 98.6; O2SAT 100
[2017-02-25] MEDS ORDERED: SODIUM CHLOR 0.9% 1000 ML INJ 1,000 ML IV ONE (23:44)
[2017-02-25] MEDS ORDERED: SODIUM CHLORIDE 0.9% FLUSH 10 ML FLUSH IVF PRN (23:45)
--- NOTE | 2017-02-25 23:48 | PD ---
HPI Chief Complaint: Diabetic Time Seen by Provider: 23:43 Travel History International Travel<30 days: No Contact w/Intl Traveler<30days: No Traveled to known affect area: No History of Present Illness HPI The patient is a 42-year-old female who presents to the emergency department for "not feeling well ". The patient was admitted to the hospital yesterday for DKA, was admitted to the intensive care unit. The patient states she signed out against medical insurance coding specialist over confrontation with the nurse about a "sip of water ". The patient states she never left the hospital premises, simply left I am seeing came back to the waiting room at the emergency Department. Patient does have a history of IVDA, states she has not used the last several days. She does complain of feeling fatigued and states that she has nowhere to go when she is discharged. The patient denies any acute chest pain, shortness of breath, nausea, vomiting, or current abdominal pain. PFSH Past Medical History Arthritis: Yes (RA) Autoimmune Disease: Yes (RA) Anxiety: Yes Depression: Yes Cancer: No Cardiovascular Problems: Yes Chest Pain: Yes (This visit) Diabetes: Yes Patient Takes Glucophage: No Diminished Hearing: No Endocrine: Yes Gastrointestinal Disorders: Yes GERD: Yes Genitourinary: No Immune Disorder: Yes Implanted Vascular Access Dvce: Yes Musculoskeletal: Yes Neurologic: No Psychiatric: Yes Reproductive: No Respiratory: No Ulcer: Yes ?: Not : 3 Para: 3 Past Surgical History Joint Replacement: Yes (Total hip replacement) Other Surgery: Yes Social History Alcohol Use: No Tobacco Use: Yes Substance Use: Yes (Dilaudid/last used 4 days ago.) Allergies-Medications (Allergen,Severity, Reaction): Coded Allergies: penicillin G (Unverified Allergy, Unknown, 02/24/17) Reported Meds & Prescriptions Reported Meds & Active Scripts Active Reported Novolog Mix 70-30 Inj (Insulin Aspart Prota 70%/Aspart 30%) 1,000 Unit/10 Ml Vial Unknown Dose SQ Review of Systems Except as stated in HPI: all other systems reviewed are Neg General / Constitutional: No: Fever Cardiovascular: No: Chest Pain or Discomfort Respiratory: No: Shortness of Breath Gastrointestinal: No: Nausea, Vomiting, Abdominal Pain Musculoskeletal: Positive: Weakness Neurologic: Positive: Weakness Physical Exam Narrative GENERAL: Awake, alert, nontoxic-appearing 42-year-old female appears her stated age and is in no acute respiratory distress. SKIN: Focused skin assessment warm/dry. HEAD: Atraumatic. Normocephalic. EYES: Pupils equal and round. No scleral icterus. No injection or drainage. ENT: No nasal bleeding or discharge. Dry mucous membranes. NECK: Trachea midline. No JVD. CARDIOVASCULAR: Regular rate and rhythm. No murmur appreciated. Heart rate in the 80s. RESPIRATORY: No accessory muscle use. Clear to auscultation. Breath sounds equal bilaterally. GASTROINTESTINAL: Abdomen soft, non-tender, nondistended. No rebound tenderness. MUSCULOSKELETAL: No obvious deformities. No clubbing. No cyanosis. No edema. NEUROLOGICAL: Awake and alert. No obvious cranial nerve deficits. Motor grossly within normal limits. Normal speech. Nonfocal. PSYCHIATRIC: Flat affect. Data Data Last Documented VS Vital Signs Date Time Temp Pulse Resp B/P (MAP) Pulse Ox O2 Delivery O2 Flow Rate FiO2 02/26/17 01:15 96 16 140/82 (101) 97 Room Air 02/25/17 21:39 98.6 Orders Orders Electrocardiogram (02/25/17 23:44) Complete Blood Count With Diff (02/25/17 23:44) Comprehensive Metabolic Panel (02/25/17 23:44) Magnesium (Mg) (02/25/17 23:44) Beta Hydroxybutyrate (Acetone) (02/25/17 23:44) Urinalysis - C+S If Indicated (02/25/17 23:44) Blood Gas Venous (Vbg) (02/25/17 23:44) Blood Glucose (02/25/17 23:44) Blood Glucose (02/26/17 00:44) Ecg Monitoring (02/25/17 23:44) Iv Access Insert/Monitor (02/25/17 23:44) Oximetry (02/25/17 23:44) NPO (02/25/17 23:44) Sodium Chlor 0.9% 1000 Ml Inj (Ns 1000 M (02/25/17 23:44) Sodium Chlor 0.9% 1000 Ml Inj (Ns 1000 M (02/26/17 00:14) Sodium Chloride 0.9% Flush (Ns Flush) (02/25/17 23:45) Ground Control Approach Technician / Telemetry STEPHEN.Q8H (02/26/17 01:26) ^ Insert Iv (02/26/17 01:26) Diet Npo (02/26/17 Breakfast) Sodium Chlor 0.9% 1000 Ml Inj (Ns 1000 M (02/26/17 01:26) Dext 5%-Nacl 0.9% 1000 Ml Inj (D5w-Ns 10 (02/26/17 01:26) Insulin Human Regular Inj (Novolin R Inj (02/26/17 01:30) Insulin Regular (Iv Infusion) (Novolin R (02/26/17 01:30) Potassium Chlor 40 Meq Premix (Kcl 40 Me (02/26/17 01:30) Potassium Chlor 40 Meq Premix (Kcl 40 Me (02/26/17 01:30) Potassium Chlor 20 Meq Premix (Kcl 20 Me (02/26/17 01:30) Potassium Chlor 20 Meq Premix (Kcl 20 Me (02/26/17 01:30) Potassium Chlor 20 Meq Premix (Kcl 20 Me (02/26/17 01:30) Potassium Chlor 20 Meq Premix (Kcl 20 Me (02/26/17 01:30) Potassium Chlor 20 Meq Premix (Kcl 20 Me (02/26/17 01:30) Potassium Chlor 20 Meq Premix (Kcl 20 Me (02/26/17 01:30) Sodium Bicarbonate 8.4% Inj (Sodium Bica (02/26/17 01:30) Sodium Bicarbonate 8.4% Inj (Sodium Bica (02/26/17 01:30) Sodium Phosphate Inj (Sodium Phosphate I (02/26/17 01:30) Basic Metabolic Panel (Bmp) (02/26/17 06:26) Basic Metabolic Panel (Bmp) (02/26/17 12:26) Basic Metabolic Panel (Bmp) (02/26/17 18:26) Basic Metabolic Panel (Bmp) (02/27/17 00:26) Magnesium (Mg) (02/26/17 06:26) Magnesium (Mg) (02/26/17 12:26) Magnesium (Mg) (02/26/17 18:26) Magnesium (Mg) (02/27/17 00:26) Phosphorus (Po4) (02/26/17 06:26) Phosphorus (Po4) (02/26/17 12:26) Phosphorus (Po4) (02/26/17 18:26) Phosphorus (Po4) (02/27/17 00:26) Beta Hydroxybutyrate (Acetone) (02/26/17 12:26) Beta Hydroxybutyrate (Acetone) (02/27/17 00:26) Labs Laboratory Tests Test 02/25/17 23:51 02/25/17 23:59 Blood Gas Puncture Site IV Blood Gas Patient Temperature 98.6 Venous Blood pH 7.26 Venous Blood Partial Pressure CO2 26 mmHg Venous Blood Partial Pressure O2 19 mmHg Venous Blood HCO3 11 mmol/L Venous Blood Oxygen Saturation 37 % Venous Blood Oxygen Content 8.8 Vol % Venous Blood Base Excess -14.3 mmol/L Oxygen Delivery Device R/A Blood Gas Inspired Oxygen 21 % White Blood Count 8.5 TH/MM3 Red Blood Count 5.62 MIL/MM3 Hemoglobin 16.0 GM/DL Hematocrit 46.0 % Mean Corpuscular Volume 81.9 FL Mean Corpuscular Hemoglobin 28.4 PG Mean Corpuscular Hemoglobin Concent 34.7 % Red Cell Distribution Width 13.4 % Platelet Count 294 TH/MM3 Mean Platelet Volume 6.8 FL Neutrophils (%) (Auto) 85.1 % Lymphocytes (%) (Auto) 5.6 % Monocytes (%) (Auto) 9.2 % Eosinophils (%) (Auto) 0.0 % Basophils (%) (Auto) 0.1 % Neutrophils # (Auto) 7.2 TH/MM3 Lymphocytes # (Auto) 0.5 TH/MM3 Monocytes # (Auto) 0.8 TH/MM3 Eosinophils # (Auto) 0.0 TH/MM3 Basophils # (Auto) 0.0 TH/MM3 CBC Comment DIFF FINAL Differential Comment Blood Urea Nitrogen 23 MG/DL Creatinine 0.71 MG/DL Random Glucose 326 MG/DL Total Protein 6.8 GM/DL Albumin 3.2 GM/DL Calcium Level 8.5 MG/DL Magnesium Level 1.7 MG/DL Alkaline Phosphatase 80 U/L Aspartate Amino Transf (AST/SGOT) 46 U/L Alanine Aminotransferase (ALT/SGPT) 36 U/L Total Bilirubin 0.5 MG/DL Sodium Level 130 MEQ/L Potassium Level 3.6 MEQ/L Chloride Level 98 MEQ/L Carbon Dioxide Level 11.9 MEQ/L Anion Gap 20 MEQ/L Estimat Glomerular Filtration Rate 91 ML/MIN B-Hydroxybutyrate 9.82 MMOL/L MDM Medical Decision Making Medical Screen Exam Complete: Yes Emergency Medical Condition: Yes Medical Record Reviewed: Yes Interpretation(s) EKG reveals normal sinus rhythm with a rate 83. No ischemic changes or ectopy noted. Laboratory Tests Test 02/25/17 23:51 02/25/17 23:59 Blood Gas Puncture Site IV Blood Gas Patient Temperature 98.6 Venous Blood pH 7.26 Venous Blood Partial Pressure CO2 26 mmHg Venous Blood Partial Pressure O2 19 mmHg Venous Blood HCO3 11 mmol/L Venous Blood Oxygen Saturation 37 % Venous Blood Oxygen Content 8.8 Vol % Venous Blood Base Excess -14.3 mmol/L Oxygen Delivery Device R/A Blood Gas Inspired Oxygen 21 % White Blood Count 8.5 TH/MM3 Red Blood Count 5.62 MIL/MM3 Hemoglobin 16.0 GM/DL Hematocrit 46.0 % Mean Corpuscular Volume 81.9 FL Mean Corpuscular Hemoglobin 28.4 PG Mean Corpuscular Hemoglobin Concent 34.7 % Red Cell Distribution Width 13.4 % Platelet Count 294 TH/MM3 Mean Platelet Volume 6.8 FL Neutrophils (%) (Auto) 85.1 % Lymphocytes (%) (Auto) 5.6 % Monocytes (%) (Auto) 9.2 % Eosinophils (%) (Auto) 0.0 % Basophils (%) (Auto) 0.1 % Neutrophils # (Auto) 7.2 TH/MM3 Lymphocytes # (Auto) 0.5 TH/MM3 Monocytes # (Auto) 0.8 TH/MM3 Eosinophils # (Auto) 0.0 TH/MM3 Basophils # (Auto) 0.0 TH/MM3 CBC Comment DIFF FINAL Differential Comment Blood Urea Nitrogen 23 MG/DL Creatinine 0.71 MG/DL Random Glucose 326 MG/DL Total Protein 6.8 GM/DL Albumin 3.2 GM/DL Calcium Level 8.5 MG/DL Magnesium Level 1.7 MG/DL Alkaline Phosphatase 80 U/L Aspartate Amino Transf (AST/SGOT) 46 U/L Alanine Aminotransferase (ALT/SGPT) 36 U/L Total Bilirubin 0.5 MG/DL Sodium Level 130 MEQ/L Potassium Level 3.6 MEQ/L Chloride Level 98 MEQ/L Carbon Dioxide Level 11.9 MEQ/L Anion Gap 20 MEQ/L Estimat Glomerular Filtration Rate 91 ML/MIN B-Hydroxybutyrate 9.82 MMOL/L Differential Diagnosis Differential diagnosis includes DKA, hyperglycemia, IVDA, poor social situation , malingering, dehydration, electrolyte abnormality. Narrative Course IV was established, labs were drawn and sent, and the patient was placed on cardiac telemetry monitoring and continuous pulse oximetry monitoring. The patient was administered IV fluids. The patient's VBG reveals acidosis with a low bicarbonate and low PCO2, consistent with metabolic acidosis that is partially compensated. Patient anion gap is elevated at 20, bicarbonate is 11, glucose is elevated at 326, most likely the result of DKA. The patient just signed out AGAINST MEDICAL ADVICE yesterday after being admitted for DKA. The patient received IV fluids and then 5 units of insulin intravenously was placed on an insulin drip. The on-call teacher resource was paged for admission. Critical Care Narrative Aggregate critical care time was 35 minutes. Time to perform other separately billable procedures was not included in the critical care time. My time did not include minutes spent treating any other patients simultaneously or on activities that did not directly contribute to the patient's treatment. The services I provided to this patient were to treat and/or prevent clinically significant deterioration that could result in: Acidosis, sepsis, dehydration, . I provided critical care services requiring my management, as noted below: Chart data review, documentation time, medication orders and management, vital sign assessments/reviewing monitor data, ordering and reviewing lab tests, ordering and interpreting/reviewing x-rays and diagnostic studies, care of the patient and discussion of the patient with the admitting physicians. Physician Communication Physician Communication The on-call teacher resource was paged for admission. Diagnosis Primary Impression: DKA (diabetic ketoacidoses) Qualified Codes: E10.10 - Type 1 diabetes mellitus with ketoacidosis without coma Additional Impression: Compliance with medication regimen Admitting Information Admitting Physician Requests: Admit Condition: Stable Eliceo Nayak MD Feb 25, 2017 23:48
[2017-02-26] VITALS (21 sets, daily range): BP systolic 133–171; BP diastolic 75–97; PULSE 75–98; RESP 15–26; TEMP 98–99.5; O2SAT 80–100
[2017-02-26 00:04] LABS: BLOOD GAS VENOUS BASE EXCESS -14.3 mmol/L (-2-2); BLOOD GAS VENOUS HCO3 11 mmol/L (22-26); BLOOD GAS VENOUS O2 CONTENT 8.8 Vol % (9.0-17.0); BLOOD GAS VENOUS O2 HGB SAT 37 % (70-76); BLOOD GAS VENOUS PCO2 26 mmHg (44-48); BLOOD GAS VENOUS PO2 19 mmHg (35-40); BLOOD GAS VENOUS pH 7.26 (7.360-7.400); TEMP CORR TO 98.6
[2017-02-26 00:05] LABS: CRITICAL VALUE YES
[2017-02-26 00:06] LABS: DRAW SITE IV; FIO2 21 %; OXYGEN DEVICE R/A; STAT YES
[2017-02-26] MEDS ORDERED: SODIUM CHLOR 0.9% 1000 ML INJ 1,000 ML IV ONE (00:14)
[2017-02-26 00:46] LABS: AUTOMATED NEUTROPHIL # 7.2 TH/MM3 (1.8-7.7); BASOPHIL % 0.1 % (0.0-2.0); HEMO FLAGS DIFF FINAL; LYMPH % 5.6 % (9.0-44.0); LYMPHOCYTE # 0.5 TH/MM3 (1.0-4.8); MEAN CELL VOLUME 81.9 FL (80.0-100.0); MEAN CORPUSCULAR HEMOGLOBIN 28.4 PG (27.0-34.0); MEAN CORPUSCULAR HGB CONC 34.7 % (32.0-36.0); MONO % 9.2 % (0.0-8.0); NEUT % 85.1 % (16.0-70.0); PLATELET COUNT 294 TH/MM3 (150-450); RED BLOOD COUNT 5.62 MIL/MM3 (4.00-5.30); RED CELL DISTRIBUTION WIDTH 13.4 % (11.6-17.2); WHITE BLOOD COUNT 8.5 TH/MM3 (4.0-11.0)
[2017-02-26 01:20] LABS: ALKALINE PHOSPHATASE 80 U/L (45-117); ALT (GPT) 36 U/L (10-53); ANION GAP 20 MEQ/L (5-15); AST (GOT) 46 U/L (15-37); BETA-HYDROXYBUTYRATE 9.82 MMOL/L (0.00-0.39); BICARBONATE 11.9 MEQ/L (21.0-32.0); BLOOD UREA NITROGEN 23 MG/DL (7-18); CHLORIDE 98 MEQ/L (98-107); GLOMERULAR FILTRATION RATE 91 ML/MIN (>89); MAGNESIUM 1.7 MG/DL (1.5-2.5); POTASSIUM 3.6 MEQ/L (3.5-5.1); SODIUM (NA) 130 MEQ/L (136-145); TOTAL BILIRUBIN ADULT 0.5 MG/DL (0.2-1.0)
[2017-02-26] MEDS ORDERED: DEXT 5%-NACL 0.9% 1000 ML INJ 1,000 ML IV SCH (01:26)
[2017-02-26] MEDS ORDERED: POTASSIUM CHLOR 20 MEQ PREMIX 100 ML IV PRN ×8 (01:30→22:00)
[2017-02-26] MEDS ORDERED: SODIUM PHOSPHATE INJ 15 MMOL in SODIUM CHLORIDE 0.9% INJ 100 ML IV PRN (01:30)
[2017-02-26] MEDS ORDERED: INSULIN HUMAN REGULAR 1,000 UNITS/10 ML VIAL IV PUSH ONE (01:30)
[2017-02-26] MEDS ORDERED: POTASSIUM CHLOR 40 MEQ PREMIX 100 ML IV PRN ×4 (01:30→22:00)
[2017-02-26] MEDS ORDERED: SODIUM BICARBONATE 8.4% SOLN 50 MEQ/50 ML VIAL IV PRN ×2 (01:30)
[2017-02-26] MEDS ORDERED: INSULIN REGULAR (IV INFUSION) 100 UNITS in SODIUM CHLORIDE 0.9% INJ 99 ML IV SCH ×3 (01:30→16:15)
[2017-02-26] MEDS: SODIUM CHLOR 0.9% 1000 ML INJ 1,000 ML IV SCH ×4 (01:47→13:26)
--- NOTE | 2017-02-26 04:33 | HHI.HP ---
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 She stated that she had been out of her insulin for about 3 days. She was placed on insulin drip per DKA protocol. Her presenting sodium was 112 (corrected 118) with glucose of 700, anion gap 28. Her white blood cell count was 29.6 she had 2 sets of blood cultures that were negative. Her anion gap closed to 10. Her sodium did go up to 137. She signed out AGAINST MEDICAL ADVICE. She returned to the emergency department today and states that she had not taken any insulin since she left. She is in DKA with glucose of 326 and anion gap of 20. She was given an insulin bolus and started on DKA protocol again. She states she has had some subjective fevers and chills. She also reports dysuria. Her urinalysis demonstrates moderate leukocyte esterase, 13 white blood cells, occasional bacteria. Urine culture is pending. Blood cultures from sets were negative. At like culture was sent 02/25 which is pending. She states her last IV drug use was Dilaudid about 6-7 days ago. She is lethargic and it is to pull history from her. She denies headache, neck pain, cough, flank pain, abdominal pain, vomiting, diarrhea, rash. Review of Systems ROS Limitations: Clinical Condition, Uncooperative Constitutional: COMPLAINS OF: Chills Past Family Social History Allergies: Coded Allergies: penicillin G (Unverified Allergy, Unknown, 02/24/17) Past Medical History Diabetes mellitus There is some mention of rheumatoid arthritis on her ED intake. She will not provide any history regarding that to me. It does not sound like she is on disease modifying therapy. She states diabetes as her only history. Past Surgical History Right hip replacement Reported Medications NovoLog [id number] Family History She states her father is living. She could not tell me how old he is. She states her mother of cancer at age 61. She cannot specify the type of cancer. Social History She states she does not smoke or drink alcohol. She does actively use IV drugs and states that she last injected Dilaudid 6-7 days ago. She also has a history of heroin use. Physical Exam Vital Signs Vital Signs Date Time Temp Pulse Resp B/P (MAP) Pulse Ox O2 Delivery O2 Flow Rate FiO2 02/26/17 02:06 94 16 151/77 (101) 100 02/26/17 01:15 96 16 140/82 (101) 97 Room Air 02/26/17 00:00 84 16 158/84 (108) 100 Room Air 02/25/17 21:39 98.6 88 16 146/88 (107) 100 Room Air Physical Exam GENERAL: Well-nourished, well-developed patient who is laying in ISC bed. SKIN: Warm and dry, adequately perfused. HEAD: Atraumatic. Normocephalic. EYES: Pupils equal and round, 3 mm and reactive to 2 mm bilaterally. No scleral icterus. No injection or drainage. ENT: No nasal bleeding or discharge. Mucous membranes dry NECK: Trachea midline. No JVD. No meningismus CARDIOVASCULAR: Regular rate and rhythm, 2/6 systolic murmur left sternal border. RESPIRATORY: No accessory muscle use. Clear to auscultation. Breath sounds equal bilaterally. On room air GASTROINTESTINAL: Abdomen soft, non-tender, nondistended. Bowel sounds present. No costovertebral angle tenderness. MUSCULOSKELETAL: Extremities without clubbing, cyanosis, or edema. No obvious deformities. NEUROLOGICAL: Lethargic but awakens to voice and answers some questions. Had to ask questions repeatedly to obtain an answer. No obvious cranial nerve deficits. Moves all extremities to command and strength appears normal. Sensation is intact. Laboratory Laboratory Tests Test 02/25/17 23:51 02/25/17 23:59 02/26/17 02:46 Blood Gas Puncture Site IV Blood Gas Patient Temperature 98.6 Venous Blood pH 7.26 Venous Blood Partial Pressure CO2 26 Venous Blood Partial Pressure O2 19 Venous Blood HCO3 11 Venous Blood Oxygen Saturation 37 Venous Blood Oxygen Content 8.8 Venous Blood Base Excess -14.3 Oxygen Delivery Device R/A Blood Gas Inspired Oxygen 21 White Blood Count 8.5 Red Blood Count 5.62 Hemoglobin 16.0 Hematocrit 46.0 Mean Corpuscular Volume 81.9 Mean Corpuscular Hemoglobin 28.4 Mean Corpuscular Hemoglobin Concent 34.7 Red Cell Distribution Width 13.4 Platelet Count 294 Mean Platelet Volume 6.8 Neutrophils (%) (Auto) 85.1 Lymphocytes (%) (Auto) 5.6 Monocytes (%) (Auto) 9.2 Eosinophils (%) (Auto) 0.0 Basophils (%) (Auto) 0.1 Neutrophils # (Auto) 7.2 Lymphocytes # (Auto) 0.5 Monocytes # (Auto) 0.8 Eosinophils # (Auto) 0.0 Basophils # (Auto) 0.0 CBC Comment DIFF FINAL Differential Comment Blood Urea Nitrogen 23 Creatinine 0.71 Random Glucose 326 Total Protein 6.8 Albumin 3.2 Calcium Level 8.5 Magnesium Level 1.7 Alkaline Phosphatase 80 Aspartate Amino Transf (AST/SGOT) 46 Alanine Aminotransferase (ALT/SGPT) 36 Total Bilirubin 0.5 Sodium Level 130 Potassium Level 3.6 Chloride Level 98 Carbon Dioxide Level 11.9 Anion Gap 20 Estimat Glomerular Filtration Rate 91 B-Hydroxybutyrate 9.82 Result Diagram: 02/25/17235802/25/172358 Septic Shock Reassessment Heart: Regular rate and rhythm Lungs: Clear Skin: Warm Capillary Refill: Brisk Caprini VTE Risk Assessment Caprini VTE Risk Assessment: Mod/High Risk (score >= 2) Caprini Risk Assessment Model Point Value = 1 Point Value = 2 Point Value = 3 Point Value = 5 Age 41-60 Minor surgery BMI > 25 kg/m2 Swollen legs Varicose veins or History of unexplained or recurrent spontaneous Oral contraceptives or hormone replacement Sepsis (< 1 month) Serious lung disease, including pneumonia (< 1 month) Abnormal pulmonary function Acute myocardial infarction Congestive heart failure (< 1 month) History of inflammatory bowel disease Medical patient at bed rest Age 61-74 Arthroscopic surgery Major open surgery (> 45 min) Laparoscopic surgery (> 45 min) Malignancy Confined to bed (> 72 hours) Immobilizing plaster cast Central venous access Age >= 75 History of VTE Family history of VTE Factor V Leiden Prothrombin [id number] Lupus anticoagulant Anticardiolipin antibodies Elevated serum homocysteine Heparin-induced thrombocytopenia Other congenital or acquired thrombophilia Stroke (< 1 month) Elective arthroplasty Hip, pelvis, or leg fracture Acute spinal cord injury (< 1 month) Prophylaxis Regimen Total Risk Factor Score Risk Level Prophylaxis Regimen 0-1 Low Early ambulation 2 Moderate Order ONE of the following: *Sequential Compression Device (SCD) *Heparin 5000 units SQ BID 3-4 Higher Order ONE of the following medications: *Heparin 5000 units SQ TID *Enoxaparin/Lovenox 40 mg SQ daily (WT < 150 kg, CrCl > 30 mL/min) *Enoxaparin/Lovenox 30 mg SQ daily (WT < 150 kg, CrCl > 10-29 mL/min) *Enoxaparin/Lovenox 30 mg SQ BID (WT < 150 kg, CrCl > 30 mL/min) AND/OR *Sequential Compression Device (SCD) 5 or more Highest Order ONE of the following medications: *Heparin 5000 units SQ TID (Preferred with Epidurals) *Enoxaparin/Lovenox 40 mg SQ daily (WT < 150 kg, CrCl > 30 mL/min) *Enoxaparin/Lovenox 30 mg SQ daily (WT < 150 kg, CrCl > 10-29 mL/min) *Enoxaparin/Lovenox 30 mg SQ BID (WT < 150 kg, CrCl > 30 mL/min) AND *Sequential Compression Device (SCD) Assessment and Plan Problem List: (1) DKA (diabetic ketoacidoses) ICD Code: E13.10 - Other specified diabetes mellitus with ketoacidosis without coma Status: Acute (2) UTI (urinary tract infection) ICD Code: N39.0 - Urinary tract infection, site not specified Status: Acute (3) Hypokalemia ICD Code: E87.6 - Hypokalemia Status: Acute (4) Hypophosphatemia ICD Code: E83.39 - Other disorders of phosphorus metabolism Status: Acute (5) Hypomagnesemia ICD Code: E83.42 - Hypomagnesemia Status: Acute (6) IVDU (intravenous drug user) ICD Code: F19.90 - Other psychoactive substance use, unspecified, uncomplicated Status: Chronic Assessment and Plan NEURO: IV drug use (opiates) Would avoid IV narcotic analgesia. Tylenol/ Lortab as needed for pain RESP: CTA chest 02/24 - scant left lower lobe infiltrate. CV: 2D echo to evaluate for vegetations given presence of murmur and IVDU hx. GI: NPO FEN/RENAL: Hypokalemia Hypophosphatemia Hypomagnesemia Maldonado in place. Monitor intake and output. Monitor I's. Replace electrolytes as indicated per protocol. ID: [id number] Urinalysis from 02/25 appears consistent with UTI. Will follow-up culture. Blood cultures from sets were negative. Blood cultures from 02/25 are pending. Will cover with cefepime for UTI and vancomycin given IVDU hx, narrow based on culture data. She reportedly has a penicillin allergy but is unable to elaborate on this stating "they never tell me what it is" HEME: Hemoconcentrated. No acute hematologic issues ENDO: Diabetes mellitus DKA Patient reports medication noncompliance as the etiology for DKA. Of note her corrected sodium was 118 at the time of her original admission. Sodium was 137 when she left AMA. At this point will placed on D5 0.45 NaCl@200 mL per hour PROPH: Lovenox 40 mg subcutaneous daily for DVT prophylaxis. Famotidine for stress ulcer prophylaxis. ACCESS: Full IV providing adequate access at this time. Discussed with Dr. Nayak Full code Level III H&P Problem Qualifiers (1) DKA (diabetic ketoacidoses): Qualified Codes: E10.10 - Type 1 diabetes mellitus with ketoacidosis without coma Yue Rodriguez MD Feb 26, 2017 04:33
[2017-02-26] MEDS ORDERED: Vancomycin Consult Pharmacy 1 EA OTHER SCH (05:00)
[2017-02-26] MEDS ORDERED: POTASSIUM PHOSPHATE INJ 30 MMOL in SODIUM CHLOR 0.9% 250 ML INJ 250 ML IV ONE (05:00)
[2017-02-26] MEDS: DEXT 5%-NACL 0.45% 1000 ML INJ 1,000 ML IV SCH ×3 (05:12→14:57)
[2017-02-26] MEDS ORDERED: CHLORHEXIDINE GLUCONATE 2 % 1 PACK (2 CLOTHS) TOP PRN (05:15)
[2017-02-26] MEDS ORDERED: SENNOSIDES 8.6 MG TAB PO PRN (05:15)
[2017-02-26] MEDS ORDERED: MAGNESIUM HYDROXIDE SUSP 30 ML CUP PO PRN (05:15)
[2017-02-26] MEDS ORDERED: BISACODYL 10 MG SUPP RECTAL PRN (05:15)
[2017-02-26] MEDS ORDERED: MISCELLANEOUS NURSING INFORMATION XX SCH (05:15)
[2017-02-26] MEDS ORDERED: SODIUM CHLORIDE 0.9% FLUSH 10 ML FLUSH IV FLUSH PRN (05:15)
[2017-02-26] MEDS ORDERED: ACETAMINOPHEN 325 MG TAB PO PRN (05:15)
[2017-02-26] MEDS ORDERED: LACTULOSE SYRUP 20 GM/30 ML CUP PO PRN (05:15)
[2017-02-26] MEDS ORDERED: RESP: ALBUTEROL 2.5 MG/3 ML NEB (PRN) INH (05:15)
[2017-02-26 05:31] LABS: MAGNESIUM 1.5 MG/DL (1.5-2.5)
[2017-02-26] MEDS: CEFEPIME INJ 2,000 MG in SODIUM CHLORIDE 0.9% INJ 100 ML IV SCH ×3 (05:38→20:33)
[2017-02-26 05:42] LABS: POTASSIUM 2.8 MEQ/L (3.5-5.1)
[2017-02-26] MEDS ORDERED: VANCOMYCIN 1,000 MG/NS 250 ML IV ONE ×2 (06:00)
[2017-02-26] MEDS ORDERED: POTASSIUM CHLORIDE 20 MEQ CONTROLLED RELEASE TAB PO ONE ×2 (06:00→15:30)
[2017-02-26] MEDS ORDERED: MAGNESIUM SULFATE 1 GM PREMIX 100 ML IV ONE (06:00)
[2017-02-26] MEDS: FAMOTIDINE 20 MG TAB PO SCH ×2 (08:55→20:33)
[2017-02-26] MEDS: DOCUSATE SODIUM 50 MG/SENNA 8.6 MG TAB PO SCH ×2 (08:55→20:33)
[2017-02-26] MEDS: ENOXAPARIN SODIUM 40 MG/0.4 ML SYRINGE SQ SCH (08:56)
[2017-02-26] MEDS: SODIUM CHLORIDE 0.9% FLUSH 10 ML FLUSH IV FLUSH SCH ×2 (09:00→21:00)
--- NOTE | 2017-02-26 13:47 | EKG ---
Date Performed: 02/25/2017 Time Performed: 23:55:11 PTAGE: 42 years EKG: Sinus rhythm Compared to previous tracing, no significant change NORMAL ECG PREVIOUS TRACING : 02/24/2017 23.09 DOCTOR: Moody Man Interpretating Date/Time 02/26/2017 13:46:27
[2017-02-26 14:17] LABS: BETA-HYDROXYBUTYRATE 0.38 MMOL/L (0.00-0.39); BICARBONATE 22.5 MEQ/L (21.0-32.0); MAGNESIUM 1.7 MG/DL (1.5-2.5)
[2017-02-26 14:33] LABS: CALCIUM-PROTEIN CORRECTED 8.3 MG/DL (8.5-10.1)
[2017-02-26 14:35] LABS: POTASSIUM 2.4 MEQ/L (3.5-5.1)
[2017-02-26] MEDS ORDERED: DC previous DKA orders (HMC 1917) ONE (15:00)
[2017-02-26] MEDS ORDERED: DC Insulin drip 2 hrs post basal insulin dose ONE (15:00)
[2017-02-26] MEDS ORDERED: DEXTROSE 50% IN WATER 50 ML VIAL(D50) IV PUSH PRN (15:00)
[2017-02-26] MEDS ORDERED: INSULIN DETEMIR 100 UNITS/ML VIAL SQ SCH (15:00)
[2017-02-26] MEDS ORDERED: GLUCAGON 1 MG/ML VIAL OTHER PRN (15:00)
--- NOTE | 2017-02-26 15:55 | ECHRPT ---
Indication: Sepsis possible endocarditis CONCLUSIONS The left ventricular systolic function is normal with an estimated ejection fraction in the range of 60-65%. Normal left ventricular size. Wall thickness is normal. No regional wall motion abnormalities are present. There is trace tricuspid valve regurgitation. The estimated pulmonary arterial pressure is 37 mmHg. Trivial pericardial effusion No definitive vegetation seen. BP: 135 / 75 HR: 95 Rhythm: Sinus Technical Quality:Fair FINDINGS LEFT VENTRICLE The left ventricular systolic function is normal with an estimated ejection fraction in the range of 60-65%. Normal left ventricular size. Wall thickness is normal. No regional wall motion abnormalities are present. RIGHT VENTRICLE Normal right ventricular size and systolic function. LEFT ATRIUM The left atrial size is normal. RIGHT ATRIUM The right atrial size is normal. ATRIAL SEPTUM Normal atrial septal thickness without atrial level shunting by limited color doppler interrogation. AORTA The aortic root and proximal ascending aorta are normal in size on limited imaging. MITRAL VALVE Structurally normal mitral valve. No mitral valve stenosis or regurgitation. AORTIC VALVE Trileaflet aortic valve. No aortic valve stenosis or regurgitation. TRICUSPID VALVE There is trace tricuspid valve regurgitation. The estimated pulmonary arterial pressure is 37 mmHg. PULMONARY VALVE The pulmonary valve is not well visualized. VESSELS The inferior vena cava is normal in size. PERICARDIUM Trivial pericardial effusion Timmy Wong MD (Electronically Signed) Final Date:26 February 2017 15:54
[2017-02-26] MEDS ORDERED: D5-1/2 NS + KCL 40 MEQ INJ 1,000 ML IV SCH (16:00)
[2017-02-26] MEDS: INSULIN DETEMIR 100 UNITS/ML VIAL SQ SCH (16:07)
[2017-02-26] MEDS: ACETAMINOPHEN/HYDROcodone 325 MG/5 MG TAB PO PRN (16:46)
[2017-02-26] MEDS ORDERED: INSULIN ASPART SUPPLEMENTAL SCALE SQ SCH ×2 (17:00)
[2017-02-26] MEDS: INSULIN ASPART SUPPLEMENTAL SCALE SQ SCH ×2 (17:00→21:11)
[2017-02-26] MEDS: INSULIN ASPART 1,000 UNITS/10 ML VIAL SQ SCH (17:31)
[2017-02-26] MEDS: VANCOMYCIN 1,000 MG/NS 250 ML IV SCH ×2 (18:21)
[2017-02-26] MEDS: NS + KCL 40 MEQ INJ 1,000 ML IV SCH (18:27)
[2017-02-26 21:36] LABS: MAGNESIUM 1.5 MG/DL (1.5-2.5)
[2017-02-26 21:41] LABS: POTASSIUM 2.9 MEQ/L (3.5-5.1)
[2017-02-26] MEDS ORDERED: POTASSIUM PHOSPHATE MONOBASIC 500 MG TAB PO/TUBE PRN (22:00)
[2017-02-26] MEDS ORDERED: MAGNESIUM SULFATE INJ 4 GM in SODIUM CHLORIDE 0.9% INJ 92 ML IV PRN (22:00)
[2017-02-26] MEDS ORDERED: MAGNESIUM SULFATE INJ 2 GM in SODIUM CHLORIDE 0.9% INJ 96 ML IV PRN (22:00)
[2017-02-26] MEDS ORDERED: SODIUM PHOSPHATE INJ 30 MMOL in SODIUM CHLOR 0.9% 250 ML INJ 240 ML IV PRN (22:00)
[2017-02-26] MEDS ORDERED: MAGNESIUM OXIDE 400 MG TAB PO PRN (22:00)
[2017-02-26] MEDS ORDERED: POTASSIUM PHOSPHATE INJ 30 MMOL in SODIUM CHLOR 0.9% 250 ML INJ 250 ML IV PRN (22:00)
[2017-02-26] MEDS ORDERED: POTASSIUM CHLORIDE 25 MEQ EFFERVESCENT TAB PO PRN (22:00)
[2017-02-26] MEDS ORDERED: POTASSIUM PHOSPHATE MONOBASIC 500 MG TAB PO PRN (22:00)
[2017-02-27] VITALS (12 sets, daily range): BP systolic 136–150; BP diastolic 87–98; PULSE 76–108; RESP 12–25; TEMP 97.6–98.4; O2SAT 95–98
[2017-02-27] MEDS: ACETAMINOPHEN/HYDROcodone 325 MG/5 MG TAB PO PRN ×3 (00:34→17:49)
[2017-02-27] MEDS: CHLORHEXIDINE GLUCONATE 2 % 1 PACK (2 CLOTHS) TOP SCH (04:00)
[2017-02-27] MEDS: INSULIN DETEMIR 100 UNITS/ML VIAL SQ SCH ×2 (04:00→16:00)
[2017-02-27] MEDS: CEFEPIME INJ 2,000 MG in SODIUM CHLORIDE 0.9% INJ 100 ML IV SCH ×3 (04:42→19:18)
[2017-02-27] MEDS: VANCOMYCIN 1,000 MG/NS 250 ML IV SCH ×4 (05:01→17:47)
[2017-02-27] MEDS: ONDANSETRON HCL 4 MG/2 ML VIAL IV PUSH PRN (05:34)
[2017-02-27 05:57] LABS: BETA-HYDROXYBUTYRATE 0.33 MMOL/L (0.00-0.39); BICARBONATE 28.4 MEQ/L (21.0-32.0); MAGNESIUM 2.3 MG/DL (1.5-2.5); POTASSIUM 3.6 MEQ/L (3.5-5.1)
[2017-02-27] MEDS: INSULIN ASPART SUPPLEMENTAL SCALE SQ SCH ×4 (08:00→21:00)
[2017-02-27] MEDS: INSULIN ASPART 1,000 UNITS/10 ML VIAL SQ SCH ×3 (08:00→17:00)
[2017-02-27] MEDS: DOCUSATE SODIUM 50 MG/SENNA 8.6 MG TAB PO SCH ×2 (08:42→19:18)
[2017-02-27] MEDS: FAMOTIDINE 20 MG TAB PO SCH ×2 (08:42→19:18)
[2017-02-27] MEDS: ENOXAPARIN SODIUM 40 MG/0.4 ML SYRINGE SQ SCH (08:43)
[2017-02-27] MEDS: SODIUM CHLORIDE 0.9% FLUSH 10 ML FLUSH IV FLUSH SCH ×2 (08:43→19:18)
[2017-02-27] MEDS: NS + KCL 40 MEQ INJ 1,000 ML IV SCH ×2 (09:55→21:03)
[2017-02-27 11:32] LABS: BACTERIA, URINE RARE /hpf; BLOOD, URINE NEG (NEG); GLUCOSE,URINE 1000 mg/dL (NEG); KETONE, URINE TRACE mg/dL (NEG); NITRITE,URINE NEG (NEG); PH, URINE 6.5 (5.0-8.5); URINE COLOR LIGHT-YELLOW (YELLW/STRAW)
[2017-02-27 11:33] LABS: COMMENT (UR) CULT NOT INDICATED; CULTURE IF INDICATED CULT NOT INDICATED
--- NOTE | 2017-02-27 12:57 | HHI.PR ---
Subjective Remarks no complians patient states ran ourt of Levemer and metformin Objective Vitals Vital Signs Date Time Temp Pulse Resp B/P (MAP) Pulse Ox O2 Delivery O2 Flow Rate FiO2 02/27/17 06:00 76 02/27/17 04:00 82 02/27/17 04:00 98.0 84 24 149/94 (112) 96 02/27/17 02:00 83 02/27/17 01:34 20 02/27/17 00:00 98.1 85 18 136/87 (103) 97 02/27/17 00:00 83 02/26/17 22:00 87 02/26/17 21:06 97 21 02/26/17 20:00 84 02/26/17 20:00 98.0 84 20 154/97 (116) 100 02/26/17 19:00 97 Room Air 02/26/17 19:00 98.0 84 20 154/97 (116) 100 02/26/17 18:00 82 02/26/17 18:00 86 16 133/84 (100) 100 02/26/17 17:00 75 15 157/91 (113) 98 02/26/17 17:00 75 15 157/91 (113) 98 02/26/17 16:00 98.3 82 21 146/84 (104) 97 02/26/17 16:00 82 02/26/17 15:00 80 22 146/86 (106) 98 02/26/17 14:00 80 02/26/17 14:00 80 19 145/85 (105) 80 02/26/17 13:00 77 23 138/84 (102) 96 I/O 02/26/17 02/26/17 02/26/17 02/27/17 02/27/17 02/27/17 07:00 15:00 23:00 07:00 15:00 23:00 Intake Total 2200 ml 1460 ml 1500 ml 1310 ml Output Total 1000 ml 1150 ml 3850 ml 3000 ml Balance 1200 ml 310 ml -2350 ml -1690 ml Intake Oral 600 ml IV Total 2200 ml 1460 ml 1500 ml 710 ml Output Urine Total 1000 ml 1150 ml 3850 ml 3000 ml # Voids 1 1 Result Diagram: 02/25/17 2359 02/27/17 0350 Objective Remarks awaske and alert, no acute distress anicteric moist oral mucosa lungs clear regular rhythm abdomen soft, nontender extremities no edema, good peripheral pulses neuro exam- unremarkable A/P Assessment and Plan 42 years old IV drug use (opiates) - counselled RESP: CTA chest 02/24 - scant left lower lobe infiltrate. CV: 2D echo to evaluate for vegetations given presence of murmur and IVDU hx. GI: start diet FEN/RENAL: Hypokalemia Hypophosphatemia Hypomagnesemia - remove anik replace electrolytee and ff UTI previous Urinalysis from 02/25 appears consistent with UTI. Repeat UA . Will follow-up culture. if Negative will DC antibitiocs Blood cultures from sets were negative. Blood cultures from 02/25 are pending on cefepime for UTI and vancomycin given IVDU hx, narrow based on culture data. She reportedly has a penicillin allergy but is unable to elaborate on this stating "they never tell me what it is" HEME: Hemoconcentrated. No acute hematologic issues ENDO: Diabetes mellitus DKA - review blood sugars restarted Levemer and adjust PROPH: Lovenox 40 mg subcutaneous daily for DVT prophylaxis. Famotidine for stress ulcer prophylaxis. UP and ambulate tranmsfer to medical floor Roman Peralta MD Feb 27, 2017 12:57
[2017-02-27] MEDS: POTASSIUM PHOSPHATE/SODIUM PHOSPHATE 250 MG TAB PO SCH ×3 (13:00→23:15)
[2017-02-27] MEDS ORDERED: SODIUM PHOSPHATE INJ 30 MMOL in SODIUM CHLOR 0.9% 250 ML INJ 250 ML IV ONE (15:00)
[2017-02-27] MEDS ORDERED: PHARMACY ORDERED LAB ONE (17:45)
[2017-02-27] MEDS: ALUMINUM/MAGNESIUM/SIMETH 30 ML CUP PO SCH ×2 (17:47→19:18)
[2017-02-27] MEDS: PANTOPRAZOLE SOD 40 MG DELAYED RELEASE TAB PO SCH (17:49)
[2017-02-28] VITALS (7 sets, daily range): BP systolic 103–137; BP diastolic 72–87; PULSE 73–86; RESP 11–19; TEMP 98–98.4; O2SAT 95–98
[2017-02-28] MEDS: ACETAMINOPHEN/HYDROcodone 325 MG/5 MG TAB PO PRN ×3 (00:37→12:51)
[2017-02-28] MEDS: CHLORHEXIDINE GLUCONATE 2 % 1 PACK (2 CLOTHS) TOP SCH (03:33)
[2017-02-28] MEDS: CEFEPIME INJ 2,000 MG in SODIUM CHLORIDE 0.9% INJ 100 ML IV SCH (04:44)
[2017-02-28] MEDS: INSULIN DETEMIR 100 UNITS/ML VIAL SQ SCH (04:44)
[2017-02-28] MEDS: ONDANSETRON HCL 4 MG/2 ML VIAL IV PUSH PRN (04:45)
[2017-02-28] MEDS ORDERED: PHARMACY ORDERED LAB ONE (05:45)
[2017-02-28] MEDS: POTASSIUM PHOSPHATE/SODIUM PHOSPHATE 250 MG TAB PO SCH ×2 (05:47→12:51)
[2017-02-28] MEDS: VANCOMYCIN 1,000 MG/NS 250 ML IV SCH ×2 (05:47)
[2017-02-28] MEDS: INSULIN ASPART SUPPLEMENTAL SCALE SQ SCH ×2 (06:24→12:00)
[2017-02-28] MEDS: INSULIN ASPART 1,000 UNITS/10 ML VIAL SQ SCH ×2 (06:24→12:00)
[2017-02-28] MEDS: FAMOTIDINE 20 MG TAB PO SCH (06:25)
[2017-02-28] MEDS: SODIUM CHLORIDE 0.9% FLUSH 10 ML FLUSH IV FLUSH SCH (09:00)
[2017-02-28] MEDS: ALUMINUM/MAGNESIUM/SIMETH 30 ML CUP PO SCH ×2 (09:30→12:51)
[2017-02-28] MEDS: PANTOPRAZOLE SOD 40 MG DELAYED RELEASE TAB PO SCH (09:31)
[2017-02-28] MEDS: ENOXAPARIN SODIUM 40 MG/0.4 ML SYRINGE SQ SCH (09:31)
[2017-02-28] MEDS: DOCUSATE SODIUM 50 MG/SENNA 8.6 MG TAB PO SCH (09:31)
[2017-02-28] MEDS: NS + KCL 40 MEQ INJ 1,000 ML IV SCH (09:32)
--- NOTE | 2017-02-28 12:23 | HHI.PR ---
Subjective Remarks no complains tolerating po well on further discussion- ran out of meds and diabetic supplies states she will be compliant Objective Vitals Vital Signs Date Time Temp Pulse Resp B/P (MAP) Pulse Ox O2 Delivery O2 Flow Rate FiO2 02/28/17 06:00 83 02/28/17 04:00 73 02/28/17 04:00 98.3 82 15 121/76 (91) 95 02/28/17 02:00 75 02/28/17 00:00 73 02/28/17 00:00 98.0 73 11 126/80 (95) 98 02/27/17 22:00 88 02/27/17 20:00 90 02/27/17 20:00 98.0 90 12 141/98 (112) 95 02/27/17 20:00 95 Room Air 02/27/17 18:00 101 02/27/17 16:00 108 02/27/17 16:00 97.6 108 25 145/93 (110) 97 02/27/17 14:00 98 I/O 02/27/17 02/27/17 02/27/17 02/28/17 02/28/17 02/28/17 07:00 15:00 23:00 07:00 15:00 23:00 Intake Total 1310 ml 100 ml 1970 ml 2131 ml Output Total 3000 ml 2350 ml 3900 ml Balance -1690 ml 100 ml -380 ml -1769 ml Intake Oral 600 ml 720 ml 960 ml IV Total 710 ml 100 ml 1250 ml 1171 ml Output Urine Total 3000 ml 2350 ml 3900 ml Result Diagram: 02/25/17 2359 02/27/17 0350 Objective Remarks awake and alert, no acute distress anicteric moist oral mucosa lungs clear regular rhythm abdomen soft, nontender extremities no edema, good peripheral pulses neuro exam- unremarkable A/P Assessment and Plan 42 years old IV drug use (opiates) - counselled RESP: CTA chest 02/24 - scant left lower lobe infiltrate. CV: 2D echo to evaluate for vegetations given presence of murmur and IVDU hx. GI: toelrating po well FEN/RENAL: Hypokalemia Hypophosphatemia Hypomagnesemia -resolved. counslled on compliant UTI previous repeat UA negative. patient no UTOI symptoms Blood cultures from sets were negative. Blood cultures from 02/25 negative las 72 hours =DC antibiotics ENDO: Diabetes mellitus S/P DKA - review blood sugars restarted Levemer and adjust - advise compliance renew all meds and supplies PROPH: Lovenox 40 mg subcutaneous daily for DVT prophylaxis. Famotidine for stress ulcer prophylaxis. UP and ambulate DC today PCP ff up avised extensively on compliance with meds and diet, substance abuse Roman Peralta MD Feb 28, 2017 12:23
[2017-02-28] MEDS ORDERED: NOVOLOGP2 SQ (12:30)
[2017-02-28] MEDS ORDERED: LEVEMIR SQ (12:30)
[2017-02-28] MEDS ORDERED: KPHOS250 PO (12:31)
[2017-02-28] MEDS ORDERED: VANCOMYCIN 1,000 MG/NS 250 ML IV SCH ×2 (14:00)
[2017-03-01] MEDS ORDERED: PHARMACY ORDERED LAB ONE (05:45)
== END 2017-02-28 14:20 | disposition home or self-care (01) | DRG 639 ==
LOC: NEPE 21:38 → NEDA 02-26 01:37 → N03A 02-26 02:30
PROVIDERS: ADMIT Internal Medicine; ATTEND Internal Medicine
DX: E10.10 Type 1 diabetes mellitus with ketoacidosis without coma (principal); E83.39 Other disorders of phosphorus metabolism; E87.6 Hypokalemia; K21.9 Gastro-esophageal reflux disease without esophagitis; Z79.4 Long term (current) use of insulin; Z91.14 Patient's other noncompliance with medication regimen; Z96.641 Presence of right artificial hip joint; Z88.0 Allergy status to penicillin; Z72.0 Tobacco use; F19.90 Other psychoactive substance use, unspecified, uncomplicated; M06.9 Rheumatoid arthritis, unspecified
CPT/HCPCS: 80048; 80053; 80202; 81001; 82010; 82533; 82805; 82948; 83605; 83735; 84100; 84155; 85025; 87641; 93005; 93306; 96360; J0692; J1650; J1815; J1817; J2405; J3370; J3475; J3480; J7030; J7050